=== PATIENT | male | born 1935 | race Caucasian/White ===

== ENCOUNTER 2017-07-19 02:11 | Inpatient (IN) | payer OTHER, MEDICARE ==
[~2017-07-19] VITALS: Ht 167.6 cm; Wt 57.5 kg
[~2017-07-19 02:11] MED LIST: ATORVASTATIN CA40 M1 PO; AZITHROMYCIN250 M1 PO; COUMADIN2 M1 PO; COUMADIN4 M1 PO; LISINOPRIL10 M1 PO; LOSARTAN POTASS50 M1 PO; NADOLOL40 M1 PO; PREDNISONE10 M2 PO; SPIRIVA18 MCG INH; SYMBICORT 80-10.2 GM INH; VENTOLIN HFA18 GM INH; VITAMIN B-121000 MC3 PO
--- NOTE | 2017-07-19 02:14 | ED DYSPNEA/ASTHMA COMPLAINT ---
History of Present Illness General Chief Complaint: Dyspnea (COPD, CHF, Other) Stated Complaint: SOB Source: patient, family, old records, EMS Exam Limitations: no limitations Vital Signs & Intake/Output Vital Signs & Intake/Output Vital Signs Date Time Temp Pulse Resp B/P B/P Pulse O2 O2 Flow FiO2 Mean Ox Delivery Rate 07/19 310 100 07/19 226 Non 100% ReBreather 07/19 222 95.9 97 28 137/96 Allergies Coded Allergies: NO KNOWN ALLERGIES (12/23/15) Reconcile Medications Albuterol Sulfate (Ventolin Hfa) 18 GM HFA.AER.AD 2 PUF INH Q4-6 PRN PRN copd substitution allowed top proair or pro-ventil Atorvastatin Calcium 40 MG TABLET 1 TAB PO DAILY HLD (Reported) Azithromycin 250 MG TABLET 250 MG PO DAILY copd exacerbation Budesonide/Formoterol Fumarate (Symbicort 80-4.5 Mcg Inhaler) 10.2 GM HFA.AER.AD 2 PUF INH BID COPD (Reported) Cyanocobalamin (Vitamin B-12) 1,000 MCG TABLET 1 TAB PO DAILY SUPPLEMENT ( Reported) Losartan Potassium 50 MG TABLET 50 MG PO DAILY HTN Nadolol 40 MG TABLET 1 TAB PO DAILY HTN (Reported) Prednisone 10 MG TABLET 60 MG PO DAILY COPD Exacerbation On Take 12/24-12/25 60 MG 12/26-12/28 50 MG 12/29-12/31 40 MG 01/01-01/03 30 MG 01/04-01/06 20 MG 01/07- 10 MG 01/10-01/12 5 MG Then Stop Tiotropium [place] (Spiriva) 18 MCG CAP.W.DEV 1 CAP INH DAILY COPD (Reported) Warfarin Sodium (Coumadin) 2 MG TABLET 1 TAB PO DAILY ATRIAL FIBRILLATION PLEASE TAKE ONE 2MG TABLET ON 12/26/15 IF INR IS LESS THAN 3. Triage Nurses Notes Reviewed? yes HPI: Patient brought in by ambulance for increasing shortness of breath. Patient has lung cancer and is currently being treated with chemotherapy. His last round of chemotherapy was on Sunday and Sunday of this week and then had to go back in yesterday for a shot of "something." Patient denies any chest pain or chest tightness. There is no coughing. The shortness of breath history of present all day but steadily getting worse in the point that he just feels he cannot catch his breath. Patient had a room air saturation of 72% upon EMS arrival. Past History Travel History Traveled to [place] past 21 day No Medical History Any Pertinent Medical History? see below for history Neurological: NONE EENT: NONE Cardiovascular: AFIB Respiratory: COPD Gastrointestinal: NONE Hepatic: NONE Renal: NONE Musculoskeletal: NONE Psychiatric: NONE Endocrine: NONE Blood Disorders: NONE Cancer(s): RENAL, LUNG CANCER VP DESIGN/Reproductive: NONE History of MRSA: No History of VRE: No History of CDIFF: No Pneumonia Vaccine: 03/13/13 Surgical History Surgical History: appendectomy Psychosocial History Who do you live with Son Services at Home None What is your primary language Pashto Tobacco Use: Quit >30 days ago ETOH Use: denies use Illicit Drug Use: denies illicit drug use Family History Family History, If Any: MOTHER Relation not specified for: FH: cancer Hx Contributory? No Review of Systems Review of Systems Constitutional: Reports: no symptoms. EENTM: Reports: no symptoms. Respiratory: Reports: see HPI, short of breath. Cardiovascular: Reports: no symptoms. GI: Reports: no symptoms. Genitourinary: Reports: no symptoms. Musculoskeletal: Reports: no symptoms. Skin: Reports: no symptoms. Neurological/Psychological: Reports: no symptoms. Hematologic/Endocrine: Reports: no symptoms. Immunologic/Allergic: Reports: no symptoms. All Other Systems: Reviewed and Negative Physical Exam Physical Exam General Appearance: well developed/nourished, alert, awake, anxious, severe distress Head: atraumatic, normal appearance Eyes: Bilateral: PERRL, EOMI. Ears, Nose, Throat: normal pharynx, normal ENT inspection, hearing grossly normal Neck: normal inspection, supple, full range of motion Respiratory: decreased breath sounds, wheezing, respiratory distress Cardiovascular: regular rate/rhythm, normal peripheral pulses Gastrointestinal: normal bowel sounds, non-tender, no organomegaly Extremities: pedal edema Neurologic/Psych: no motor/sensory deficits, awake, alert, oriented x 3, normal mood/affect Skin: intact, normal color, warm/dry Lymphatic: no anterior cervical sandra Core Measures ACS in differential dx? Yes CVA/TIA Diagnosis No Sepsis Present: Yes Sepsis Focused Exam Completed? Yes ED Sepsis Exam Date of Focused Sepsis Exam: 07/19/17 Time of Focused Sepsis Exam: 413 Sepsis Cardiac Exam: Regular Rate/Rhythm Sepsis Resp Exam: CTA Sepsis Cap Refill Exam: >2 sec Sepsis Peripheral Pulse Exam: Weak Sepsis Peripheral Pulse Location: Radial Sepsis Skin Color Exam: Pale, COOL, DRY Skin Temp/Moisture Exam: Cool/Dry Progress Differential Diagnosis: bronchitis, CHF, COPD, pulmonary embolism, pneumonia, pneumothorax Plan of Care: Orders Procedure Date/time Status CBC WITHOUT DIFFERENTIAL 07/20 0600 Active ARTERIAL BLOOD GAS (GEN) 07/19 0600 Active LACTIC ACID 07/19 0514 Active PROTHROMBIN TIME 07/19 0500 Active PHOSPHORUS 07/19 0500 Active MAGNESIUM 07/19 0500 Active HEPATIC FUNCTION PANEL 07/19 0500 Active BASIC ELECTROLYTES PLUS BUN&CR 07/19 0500 Active TRC EVALUATION (GEN) 07/19 0403 Active OXYGEN SETUP (GEN) 07/19 0403 Active Pathway - chart 07/19 040 Active House Staff 07/19 0403 Active CULTURE,URINE 07/19 040 Active SPECIMEN TO BE OBTAINED 07/19 040 Active Code Status 07/19 0403 Active Admit to inpatient 07/19 0357 Active Patient Data 07/[address] CHEST WO IV CONTRAST 07/[address] ABD & PELVIS W/O IV CONTRAS 07/19 0357 Active XRY-PORTABLE CHEST XRAY 07/19 0346 Active VENTILATOR PARAMETERS 07/19 0305 Complete ARTERIAL BLOOD GAS (GEN) 07/19 0214 Complete Telemetry/Lens Coater 07/19 0214 Active BLOOD CULTURE 07/19 0214 Active URINALYSIS 07/19 0214 Active TROPONIN LEVEL 07/19 0214 Complete PARTIAL THROMBOPLASTIN TIME 07/19 0214 Complete PROTHROMBIN TIME 07/19 0214 Complete LACTIC ACID 07/19 0214 Complete COMPREHENSIVE METABOLIC PANEL 07/19 0214 Complete CBC WITHOUT DIFFERENTIAL 07/19 0214 Active EKG 07/19 0212 Active VTE Mechanical Prophylaxis 07/19 UNK Active Vital Signs 07/19 UNK Active Intake & Output 07/19 UNK Active Koo, Insertion/Removal/Asses 07/19 UNK Active Current Medications Sig/[place] Start time Last Medication Dose Stop Time Status Admin Calcium Gluconate 1 GM ONCE ONE 07/19 0400 AC 07/19 (Calcium Gluconate) 07/19 0459 0413 Sodium Chloride 100 ML (Normal Saline 0.9%) Norepinephrine 4 MG ONCE ONE 07/19 0345 UNir (Levophed Drip) 07/19 0346 Sodium Chloride 250 ML (Normal Saline 0.9%) Vancomycin HCl 1,000 MG ONCE ONE 07/19 0345 AC Dextrose/Water 250 ML 07/19 0444 (D5W) Laboratory Tests 07/19/17 0230: pH 7.10 *L, pCO2 89 *H, pO2 95, HCO3 27, ABG O2 Sat (Measured) 93.0 L, P-50 ( Temp Corrected) Y, Carboxyhemoglobin 2.4, O2 Concentration % 10 LPM, Temperature 95.9 L, O2 Delivery Method NEB VIA A/M, Phlebotomy Draw Site LEFT RADIAL 07/19/17 0220: Anion Gap 10, Estimated GFR 49 L, BUN/Creatinine Ratio 35.0 H, Glucose 132 H, Lactic Acid 1.8, Calcium 9.3, Total Bilirubin 0.8, AST 36, ALT 24, Alkaline Phosphatase 161 H, Troponin I 0.03, Total Protein 6.1 L, Albumin 3.6, Globulin 2.5, Albumin/Globulin Ratio 1.4, PT 61.6 *H, INR 5.97 *H, APTT 45 H, CBC w Diff MAN DIFF ORDERED, RBC 3.62 L, MCV 93.7, MCH 32.0 H, MCHC 34.1, RDW 15.4 H, MPV 7.5, Segmented Neutrophils Pending, Band Neutrophils Pending, Lymphocytes Pending, Monocytes Pending, Nucleated RBCs Pending, Platelet Estimate Pending, Basophilic Stippling Pending, Anisocytosis Pending, Stomatocytes Pending, Elliptocytes Pending Microbiology 07/19 040 URINE ROUT: Urine Culture - RECD 07/19 219 BLOOD: Blood Culture - RECD 07/19 213 BLOOD: Blood Culture - ORD Diagnostic Imaging: Viewed by Me: Radiology Read. Discussed w/RAD: Radiology Read. Initial ED EKG: A FIB, LVH, ST DEPRESSIONS LATERALLY WHICH ARE NEW Prior EKG: changed Rhythm Strip: atrial fibrillation Comments: Discussed with the patient and his son, patient is a full code. Son's request the patient was again asked if he would want a breathing tube put in and again the patient responded that yes he would. Patient is becoming more and more lethargic. Patient's son called his sister. Patient's condition was discussed with the sister as well as the son once again. They advised to go ahead and continue full CODE STATUS. The sister is going to try and arrange transportation to the hospital over the next few days and a family meeting will be had. Departure Departure Disposition: STILL A PATIENT Condition: Critical Clinical Impression Primary Impression: Hypercapnic respiratory failure Secondary Impressions: Hyperkalemia, Hypotension Referrals: Karol Norman MD (PCP/Family) Departure Forms: Customer Survey General Discharge Information Admission Note Spoke With: Julian Mitchell MD Documentation of Exam: Documentation of any treatments & extenuating circumstances including Concerns Regarding Discharge (functional status, medication knowledge or non-compliance, living conditions, etc.) that warrant an admission rather than observation: [ Patient is intubated and has a central line and is currently on pressors. Patient is requiring ICU admission. He will need a pulmonary critical care consultation, oncology consultation. Broad-spectrum antibiotics.] Procedures Central Line Central Line Lumen: triple Central Line Procedure: Yes: bentadine prep?, sterile drapes applied, sterile dressing applied. Central Line Position: femoral (R) Anesthesia: lidocaine 1% CC's of Anesthesia: 5 Complications: none Central Line Post Position: sutured, good blood return Intubation Time of Intubation: 0300 Intubation Method: orotracheal Tube Size (cm): 7.5 Medications: ETOMIDATE Breath Sounds After Intubation: equal Intubation Complications: no complications Post Intubation Xray? Yes Critical Care Note Critical Care Note Critical Care Time: mins: (120 MIN)
[2017-07-19 02:35] LABS: HEMATOCRIT 33.9 % (42-52); MEAN CORPUSCULAR HGB CONC 34.1 G/DL (33.0-37.0); MEAN CORPUSCULAR VOLUME 93.7 FL (80.0-94.0); MEAN PLATELET VOLUME 7.5 FL (7.4-10.4); PLATELET COUNT 485 /CUMM (130-400); RBC DISTRIBUTION WIDTH 15.4 % (11.5-14.5); RED BLOOD CELL CT 3.62 /CUMM (4.70-6.10)
[2017-07-19 02:57] LABS: PTT 45 SEC (25-37)
[2017-07-19 03:19] LABS: PT 61.6 SEC (9.4-12.5)
--- NOTE | 2017-07-19 03:23 | RADIOLOGY REPORT ---
EXAMINATION: XR PORTABLE CHEST CLINICAL INFORMATION: Shortness of breath COMPARISON: PET CT 06/12/2017 TECHNIQUE: Portable frontal view of the chest was obtained. FINDINGS: Assessment is partially limited due to patient rotation. The left apex is not fully included on this exam. There is suggestion of small bilateral pleural effusions and mild adjacent basilar atelectasis, without additional definite consolidation. No appreciable pneumothorax or overt pulmonary edema. The cardiomediastinal contour is not well evaluated due to the marked rightward patient rotation. Anterior chest wall mass identified on recent PET CT is not as well demonstrated radiographically. IMPRESSION: 1. Limited examination due to patient rotation. Suggestion of small pleural effusions and mild adjacent basilar atelectasis. No additional consolidation identified. 2. Anterior chest wall mass visualized on recent PET CT is not as well demonstrated radiographically.
[2017-07-19 03:51] LABS: WHITE BLOOD CELL COUNT 164.2 /CUMM (4.8-10.8)
--- NOTE | 2017-07-19 03:57 | History & Physical ---
Danni Seo MD 07/19/17 0356: General Information and HPI MD Statement: I have seen and personally examined CINDI PEPPER and documented this H&P. The patient is a 81 year old M who presented with a patient stated chief complaint of [shortness of breath]. Source of Information: family Exam Limitations: physical impairment History of Present Illness: 81-year-old gentleman with past medical history of atrial fibrillation on Coumadin, hypertension, hyperlipidemia, COPD, lung cancer [small cell] status post chemotherapy was brought in by ambulance with complaints of increased shortness of breath with nonproductive cough since 4 hours. EMT was called who found him with saturation of 70% and started him on 3 L of nasal oxygen and later put him on 15 L on nonrebreather mask. Apparently patient was diagnosed with lung cancer this May 2017 and patient is on chemotherapy. Patient got chemotherapy this Sunday, Sunday followed by Neupogen injection given on Sunday.. Patient has been having shortness of breath with nonproductive cough and decreased by mouth intake for the past few days which gotten worse since last 4 hours. Patient woke up this morning with increased shortness of breath with pain on deep inspiration more on the right side. Patient was admitted in 2015 and found to have lung mass. According to the patient family, patient was diagnosed with lung cancer with metastasis to bone and liver In May 2017. Patient had a PET scan done on 06/12/2017 which showed right lower lobe pulmonary mass consistent with primary pulmonary malignancy. Patient has been seen by Dr. Jensen, Dr. Santiago. 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 Pt had nephrectomy done 6-7 years ago for renal carcinoma.Patient was seen in ED on 07/03/2017 for hyperkalemia. Allergies/Medications Allergies: Coded Allergies: NO KNOWN ALLERGIES (12/23/15) Home Med list Albuterol Sulfate (Ventolin Hfa) 18 GM HFA.AER.AD 2 PUF INH Q4-6 PRN PRN copd substitution allowed top proair or pro-ventil Atorvastatin Calcium 40 MG TABLET 1 TAB PO DAILY HLD (Reported) Azithromycin 250 MG TABLET 250 MG PO DAILY copd exacerbation Budesonide/Formoterol Fumarate (Symbicort 80-4.5 Mcg Inhaler) 10.2 GM HFA.AER.AD 2 PUF INH BID COPD (Reported) Cyanocobalamin (Vitamin B-12) 1,000 MCG TABLET 1 TAB PO DAILY SUPPLEMENT ( Reported) Losartan Potassium 50 MG TABLET 0.5 MG PO DAILY HTN Nadolol 40 MG TABLET 1 TAB PO DAILY HTN (Reported) Prednisone 10 MG TABLET 60 MG PO DAILY COPD Exacerbation On Take 12/24-12/25 60 MG 12/26-12/28 50 MG 12/29-12/31 40 MG 01/01-01/03 30 MG 01/04-01/06 20 MG 01/07- 10 MG 01/10-01/12 5 MG Then Stop Tiotropium [place] (Spiriva) 18 MCG CAP.W.DEV 1 CAP INH DAILY COPD (Reported) Warfarin Sodium (Coumadin) 2 MG TABLET 1 TAB PO DAILY ATRIAL FIBRILLATION PLEASE TAKE ONE 2MG TABLET ON 12/26/15 IF INR IS LESS THAN 3. 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 Home Who Do You Live With? child Services at Home: None Primary Language: Yi ETOH Use: denies use Illicit Drug Use: denies illicit drug use Functional Ability ADLs Independent: dressing, eating, toileting, bathing. Ambulation: independent IADLs Independent: shopping, housework, finances, food prep, telephone, transportation , medication admin. Review of Systems Review of Systems Constitutional: Reports: no symptoms. Comments Review of system unobtainable patient is intubated. Family, he didn't complain of any headache, altered mental status, altered sensation, loss of consciousness, fall, palpitation, nausea, vomiting, abdominal pain, lethargy. Patient though had shortness of breath, nonproductive cough, decreased by mouth intake for the past few days. Exam & Diagnostic Data Last 24 Hrs of Vital Signs/I&O Vital Signs Date Time Temp Pulse Resp B/P B/P Pulse O2 O2 Flow FiO2 Mean Ox Delivery Rate 07/19 0538 96.9 80 16 144/81 92 Ventilator 07/19 0515 100 07/19 0402 96.9 88 143/91 07/19 0311 100 07/19 0230 Non 100% ReBreather 07/19 0227 Non 100% ReBreather 07/19 0223 95.9 97 28 137/96 Intake & Output 07/19 0800 07/19 0000 07/18 1600 Intake Total Output Total Balance Patient 130 lb Weight Weight Reported by Patient Measurement Method Physical Exam General Appearance patient intubated HEENT left pupil larger than the right,sluggishly reactive Cardiovascular Normal S1, Normal S2, No Murmurs Lungs Clear to Auscultation Abdomen Soft Extremities bilateral pedal edema Diagnostic Data EKG Results Atrial fibrillation heart rate 80 CXR Results IMPRESSION: 1. Limited examination due to patient rotation. Suggestion of small pleural effusions and mild adjacent basilar atelectasis. No additional consolidation identified. 2. Anterior chest wall mass visualized on recent PET CT is not as well demonstrated radiographically. 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 Admission labs ABG-pH 7.10, PCO2 80.9, PaO2 95, bicarbonate 27, WBC 164.2, hemoglobin 11.6, hematocrit 33.9, platelets-485, PT61.6, INR 5.97, sodium 142, potassium 5.9, BUN 49, creatinine 1.4, glucose 132, lactic acid 1.8, calcium 9.3, alkaline phosphatase 161. Admission vitals Temperature 95.9, pulse rate 97, respiratory rate 28, blood pressure 137/96, on 15L nonrebreather mask Chest x-ray 1. Limited examination due to patient rotation. Suggestion of small pleural effusions and mild adjacent basilar atelectasis. No additional consolidation identified. 2. Anterior chest wall mass visualized on recent PET CT is not as well demonstrated radiographically. PET scan 06/12/2017 1. Intensely FDG avid right lower lobe pulmonary mass most consistent with a primary pulmonary malignancy. 2. Large erosive intensely FDG avid metastasis replacing the sternal manubrium with a large soft tissue component containing some central necrosis that extends both anteriorly as well as posteriorly into the retrosternal anterior mediastinum. 3. Multiple additional FDG avid osseous metastases are present, as described above. 4. A single FDG avid liver metastasis is present. 5. Absent right kidney, likely surgically resected. 6. Diffuse vascular calcifications including coronary. 7. Aneurysmal dilatation of the infrarenal abdominal aorta with maximum AP dimension of 3.[address] abdomen and pelvis/chest CT 07/19/2017 IMPRESSION: 1. New small to moderate right and small left pleural effusions. 2. Redemonstrated right lower lobe lung mass, similar to 06/12/2017. 3. Redemonstrated anterior chest wall mass replacing most of the sternal manubrium, which may be slightly increased in size from 06/12/2017. 4. Trace perihepatic and pelvic free fluid. 5. Colonic diverticulosis. Mild stranding is noted adjacent to the sigmoid colon, for which a subtle diverticulitis is difficult to entirely exclude. 6. Subtle fracture deformities of the lateral right fifth and sixth ribs are new from 06/12/2017 and may represent acute or subacute injury. 7. Osseous metastases in T2, T11, sacrum, and right iliac bone, some of which are better demonstrated on prior PET/CT. ED treatment Patient came with 15 L on nonrebreather mask. Patient was alert oriented 3 and expressed his wishes to be full code. Later suddenly within 10 minutes his work of breathing increased and had hypotension 80/40, nonresponsive and he was decided to be intubated by the ED physician. Patient also had a central line placed in his right femoral vein. Patient was on levo fed which was eventually stopped secondary to his stable blood pressure. Vancomycin, Ceptazidime 1000mg once, normal saline 1000 ML bolus, etomidate and be clear on the him for sedation, Assessment and plan 1. Acute hypercarbic hypoxic respiratory failure 2. Small cell Lung cancer 3. Supratherapeutic INR 4. Leukocytosis 5. Metabolic encephalopathy 6. Hyperkalemia 7. Acute on chronic kidney disease * We will admit in ICU. Patient is intubated. Patient was given etomidate once for sedation. we will start him on Ativan drip and IV hydration. When we saw him he was off sedation, and he was not in any distress. Patient presentation with hypercarbic hypoxic respiratory failure can be secondary due to his COPD complicated with lung cancer with bilateral pleural effusion. Patient was given 1 dose of vancomycin and Ceptazidime. The clinical picture doesn't look like pneumonia. We will continue antibiotics if needed. We will get the CT chest, abdomen and pelvis. * We will get an head CT to rule out any stroke. * we will hold his Coumadin in view of supratherapeutic INR. We will repeat PT/ INR and give FFP if needed. * Given that patient has lung cancer on chemotherapy we will do a uric acid, electrolyte panel, creatinine phosphokinase to rule out any tumor lysis syndrome. Patient has leukocytosis which can be a leukemoid reaction[patient WBC 164 with increase in neutrophils] We will get an oncology consult in a.m. * Hyperkalemia-patient was given calcium gluconate and we will continue IV hydration and repeat labs at 8 AM. Patient has expressed full code. The goals of care need to be rediscussed with the family. Core Measures/Misc (02/18) Acute Coronary Syndrome ACS Diagnosis: No Congestive Heart Failure Congestive Heart Failure Diagnosis No Cerebrovascular Accident CVA/TIA Diagnosis: No VTE (View Protocol) VTE Risk Factors Age>40 No Mechanical VTE Prophylaxis d/t Other No VTE Pharm Prophylaxis d/t Other Sepsis (View protocol) Sepsis Present: No Rishabh,Gretchen 07/19/17 0548: Assessment/Plan As Ranked By This Provider Problem List: 1. Hypercapnic respiratory failure 2. 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 History is limited as patient is intubated. Speaking with the son reveals that the patient had been experiencing worsening shortness of breath for quite a while now. He was diagnosed with lung cancer apparently in May 2017. Underwent 2 rounds of chemotherapy with the second round that started this week. Patient received chemotherapy on Sunday, Sunday as well as Sunday and apparently had a Neupogen shot yesterday. Going through office notes, reveals patient saw Dr. Ramírez on 07/16/17. He documents that he will be holding his Neulasta. Apparently the son got a phone call yesterday evening saying that the patient has some difficulty ambulating stairs Around 8 PM, son helped him get into bed. He woke up shortly tehreafter, saying that he was having trouble breathing and had pain while taking a deep breath in which got better when he breathes out. Patient has been coughing however there is no history of phlegm production. There is no history of diarrhea, dysuria, fever, chills, any upper respiratory tract infection. Patient follows up with Dr. Jensen and Fabrice Santiago MD. He also had a kidney removed about 7-8 years ago for renal cancer. He follows up with urologist Dr. Washburn. Going through records reveals that he was toxic to 72% on room air when EMS arrived. Place on a nonrebreather and went presented to the ED was alert and oriented 3 however his status continued to decline he became more lethargic, with a drop in blood pressure to 674/46. Since he was very lethargic and began to get more obtunded. And Dr. Bryant spoke with the patient he wanted to be intubated and is at this point after speaking with the family patient ended up getting intubated in the ER. ABG revealed severe hypercarbic respiratory acidosis. A femoral line was also placed and patient was started on Levophed for maintenance of his blood pressure. Vitals at the time for admission blood pressure 137/97, respiratory rate of 20, pulse 97, temperature of 95.9. On physical exam he is intubated ,and not respondin to verbal or painful stimuli despite being not on any sedating meds. HEENT revealed left pupil larger than right, but both reactive to light. He has a 5cm x8cm protuding mass on sternum. Cardiovascular exam pertiennt for normal S1, S2, no murmers appreciated. Respiratory exam was benign with chest clear to ausculation bilaterally. Abdominal exam was unremarkable, with abdomen soft, non-distended, with normal bowel sounds. Examination of extremities- cool to touch, with 1-2+ edema in LE bilaterally. Labs pertinent for leukocytosis with a white blood cell count of 164.2, H&H of 11.6/33.9 and an MCV of 93.7 with a platelet count of 4 85,000. Chemistries pertinent for potassium of 5.9, normal sodium of 142, and I'm normal anion gap of 10, BUN 49 with a creatinine of 1.4 and is from glucose of 132. Lactic acid is 1.8. LFTs pertinent for an AST/active 36/24, total bili 0.8 with an alkaline phosphatase of 161. First set of troponin 0.03. INR was supratherapeutic at 5.97. UA not received. ABG insistent with severe respiratory acidosis with a pH of 7.10, PCO2 of 89, PO2 of 95% CXR showed small pleural effusion and mild adjacent basilar atelectasis consolidation identified within the anterior chest wall mass visualized no recent PET/CT Afib, normal axis, with hr: 97;ST-T changes In the ER he received calcium gluconate 1 g IV 1, ceftaz 1000 milligrams IV 1, vancomycin thousand milligrams IV 1, black 10 mg IV 1, 10 units of insulin IV Assessment and plan Admit patient to ICU #Respiratory Acute hypoxic hypercarbic respiratory failure Most likely secondary to COPD exacerbation versus being on pain medications vs PNA vs mucous plugging? Obtain a U tox, check a repeat ABG in 2 hours and adjust ventilator settings accordingly. 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 tumor lysis syndrome - ? Neupogen Placed consult [facility] Dr. Ramírez - ? leukopharesis Meanwhiel will obtain uric acid, CPK, DIC panel. #Hypotension - 2/2 sepsis - ? PNA - Currently on Levo - Titrate to maintain MAP>65MMhG - R/O ACS with trop and ECG @ 11:00 and 5:00pm #Hyperkalemia - 2/2 tumor lysis syundrome; WHITNEY - Patient received Ca gluconate, insulin and dextrose. -Meanwhile continue hydration with IVF and consider K- axylate if still hyperkalemic #WHITNEY - 2/2 dehydration in setting of decreased PO intake. - Hydrate with IVF and F/U BEP. #Supratherapeutic INR - Hold Warfarin and F/U INR - Held off giving Vit K as it is below 6 and he is not actively bleeding - Obtain a head CT to r/o IC bleed #Stage IV SCLC - Patient has poor prognosis depsite being started on chemo - Patient's family is reasonable and a goals of care discussion needs to be done , once rest of the relatives are here. - DVT prophylaxis - Heoarin 5000IU TID SC - Diet - NPo for now - Code - Full Code for now. - Full discussion with family regarding goals of care. Julian Mitchell 07/19/17 0612: Attending MD Review Statement Attending Statement Attending MD Statement: examined this patient, discuss w/resident/PA/BARREL RIBS SOLDERER, agreed w/resident/PA/BARREL RIBS SOLDERER, discussed with family, reviewed EMR data (avail), reviewed images, amended to note Attending Assessment/Plan: CC: cough, SOB PMH: Metastatic lung cancer, COPD on 2 L nasal cannula, HTN, A. fib, idiopathic pneumothorax in 2013, history of renal cell carcinoma S/P right-sided nephrectomy, History is obtain from patient's son. According to him patient was not feeling well since last few days, had worsening breathing and productive cough. Today it was very severe so they had to call EMS. Patient also complained of chest pain while deep inspiration. Son denies any fever or chills, nausea, vomiting, diarrhea, skin lesions. Patient had been very compliant with all his medications. He uses nighttime 2 L nasal cannula oxygen since some time and one and half liter to 2 L nasal cannula oxygen since last 1-2 months. They did not notice any increasing oxygen demand over few days. He is lung cancer was diagnosed towards end of 2016. Patient is currently on chemotherapy for his lung cancer, on second round. On July 02 patient's blood counts were very low so he received some injection to increase the blood counts. Vitals: Temperature 95.9, pulse 97, RR 28, blood pressure 137/92, saturating 92% on vent On exam: Intubated, pupils 1 mm, sluggishly reactive, left pupil slightly larger than right, patient was off sedation when we examined not attempting to fight ventilation. RS: Air entry equal bilaterally CVS: S1-S2 tachycardia, protruding mass like lesion in the anterior part of the chest. Abdomen: Scaphoid no grimace on palpation, bowel sounds present, bilateral lower extremity edema, cold extremities pulses present bilaterally with decreased perfusion. CT abdomen chest and pelvis without IV contrast: 1. New small to moderate right and small left pleural effusions. 2. Redemonstrated right lower lobe lung mass, similar to 06/12/2017. 3. Redemonstrated anterior chest wall mass replacing most of the sternal manubrium, which may be slightly increased in size from 06/12/2017. 4. Trace perihepatic and pelvic free fluid. 5. Colonic diverticulosis. Mild stranding is noted adjacent to the sigmoid colon, for which a subtle diverticulitis is difficult to entirely exclude. 6. Subtle fracture deformities of the lateral right fifth and sixth ribs are new from 06/12/2017 and may represent acute or subacute injury. 7. Osseous metastases in T2, T11, sacrum, and right iliac bone, some of which are better demonstrated on prior PET/CT. PET scan and MRI brain done in month of June reviewed Assessment and plan 81-year-old male with history of metastatic lung cancer currently under chemotherapy, COPD on 2 L nasal cannula, HTN, A. fib, idiopathic pneumothorax in 2013, history of renal cell carcinoma S/P right-sided nephrectomy, was brought in ER for worsening of shortness of breath and cough over last few days but severe E worse today. Patient was also complaining of chest pain while deep inspiration. Because of his chest pain and shortness of breath EMS was called on arrival EMS noted his oxygen saturation to be 80% on 3 L nasal cannula. Patient was brought in ER with a 15 L nonrebreather, difficult to obtain O2 saturations. Patient appeared pale but alert. In the ER over very short duration of time patient became more lethargic and less arousable, stat ABGs were obtained which shows significant hypercapnia with respiratory acidosis. CODE STATUS was discussed 2 times with patient's son by ER physician who mentioned patient to be full code and suggested to intubate if required. Patient was intubated and was started on ventilation, immediately after that patient's blood pressure dropped, right femoral central line was placed and patient was started on Levophed along with aggressive peripheral hydration. Eventually Levophed was tapered off very quickly. He is also found to have hyperleukocytosis cytosis with WBC 164,000, thrombocytosis 485. He has hyperkalemia 5.9 with T-wave changes on ECG, was treated with calcium gluconate and insulin/dextrose combination in ER. Patient also received vancomycin and ceftaz. I had a detailed discussion with patient's family son and another relative who said that they would want to pursue full code for now as they are expecting his other son and daughter to fly in from [place] and [place]. (He had a sad experience in the past when he to decision for his mother about DNR and DNI and family could not say last goodbyes). He expects to have a family meeting tomorrow to readdress the CODE STATUS and goals of care. + Acute on chronic hypercapnic respiratory failure,likely secondary to COPD exacerbation. Patient does not appear to be on any pain medication even with this extent of cancer. We'll obtain U tox, will continue ventilator support, repeat ABG in 2 hours, change rate or oxygenation accordingly, critical care consult, TRC nebs, IV methylprednisolone, continue broad-spectrum antibiotics for now, obtain CT head, add lactic acid to sampling lab + Metabolic encephalopathy secondary to hypercapnia + Hyperleukocytosis probably secondary to G-CSF : need to confirm this with Oncologist, Please get tumor lysis labs the uric acid, CPK, phosphate at to sample in lab, call oncology as soon as possible, continue aggressive intravenous hydration, add DIC labs to coags + Hyperkalemia: Repeat potassium in 3-4 hour, continue aggressive hydration, try Kayexalate through NG tube, continue aggressive hydration + Metastatic lung cancer + Full code, goals of care as discussed above TTS 34 min
[2017-07-19] MEDS ORDERED: LOSARTAN POTASS50 M1 PO (04:45)
--- NOTE | 2017-07-19 04:47 | RADIOLOGY REPORT ---
EXAMINATION: XR PORTABLE CHEST CLINICAL INFORMATION: Post intubation COMPARISON: Multiple priors, most recent from earlier today TECHNIQUE: Portable frontal view of the chest was obtained. FINDINGS: Endotracheal tube tip lies approximately 8 cm above the faith. Lung volumes are symmetric. There is an approximately 3 cm rounded density overlying the right midlung, in keeping with the lower lobe mass identified on prior PET CT 06/12/2017. No acute consolidation is identified bilaterally. No evidence of pneumothorax, significant pleural effusion, or overt pulmonary edema. Cardiac size is within normal limits. Prominent soft tissue overlying the upper mediastinum may represent the chest wall mass visualized on prior PET/CT. 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 IMPRESSION: 1. Endotracheal tube tip approximately 8 cm above the faith. 2. Redemonstrated right lower lobe mass. 3. Prominent soft tissue density overlying the upper mediastinum may represent a chest wall mass better seen on prior PET/CT.
--- NOTE | 2017-07-19 05:38 | CT SCAN REPORT ---
EXAM: NONCONTRAST CT OF THE CHEST; NONCONTRAST CT OF THE ABDOMEN AND PELVIS INDICATION: Septic COMPARISON: PET CT 06/12/2017 TECHNIQUE: No IV contrast was utilized. Multidetector helical imaging was performed through the chest, abdomen, and pelvis. Coronal and sagittal reformatted images were created at the technologist workstation. DLP: 356.11 mGy-cm FINDINGS: Chest: There is extensive upper lobe predominant emphysema. Curvilinear and spiculated nodular densities in the apical left upper lobe appear unchanged from prior. There is a redemonstrated superior right lower lobe mass peripherally measuring up to approximately 2.8 x 2.0 cm, grossly similar to prior accounting for some respiratory motion artifact on the prior exam. Scattered tiny calcified granulomas are present bilaterally. There are small to moderate right and small left pleural effusions which are new from prior. No pneumothorax. There is a redemonstrated anterior chest wall mass superiorly which mostly replaces the sternal manubrium. This measures approximately 10.5 x 6.1 cm in the axial plane and may be slightly increased in size from 06/12/2017. The visualized thyroid gland is unremarkable. There are subcentimeter mediastinal lymph nodes within the range of normal variation. Cardiac size is within normal limits; no pericardial effusion. Coronary artery calcifications are present. There is atherosclerotic calcification along the aorta. The ascending aorta measures approximately 4.0 cm in diameter. No axillary lymphadenopathy is present. Abdomen/Pelvis: The liver is homogeneous in attenuation and not well evaluated in the absence of intravenous contrast. Previously identified hepatic lesion is not clearly demonstrated on this noncontrast exam. No intrahepatic biliary ductal dilatation. There is trace fluid adjacent to the right hepatic lobe. The gallbladder is unremarkable. The unenhanced spleen, pancreas, and adrenal glands are within normal limits. The right kidney is absent. No left hydronephrosis. There is a 2 mm left lower pole renal calculus. There is a subcentimeter hyperdense lesion off the posterior kidney, suggestive of a hyperdense cyst. A simple cyst measuring 1.7 cm is likely present in the perihilar region of the left kidney. The urinary bladder is nearly empty, with a Oko catheter in place and a small amount of air. The prostate and seminal vesicles are unremarkable. There is trace pelvic free fluid. There is colonic diverticulosis. There is mild stranding adjacent to the sigmoid colon, for which a subtle diverticulitis in this region is difficult to entirely exclude. No evidence of bowel obstruction. The appendix is not discretely visualized. No free air is present. There is atherosclerotic calcification along the aorta. There is an infrarenal abdominal aortic aneurysm measuring up to 3.2 cm. A right femoral central venous catheter is present. No retroperitoneal or pelvic lymphadenopathy is seen. There are subtle fracture deformities of the lateral right fifth and sixth ribs which are new from prior and may be subacute in nature. Chronic posterior lower left rib deformities are consistent with healed old fractures. Note is made of previously identified lytic lesions in T2, T11, sacrum, and right iliac bone, some of which are better demonstrated on prior PET/CT. Degenerative changes are noted in the spine. IMPRESSION: 1. New small to moderate right and small left pleural effusions. 2. Redemonstrated right lower lobe lung mass, similar to 06/12/2017. 3. Redemonstrated anterior chest wall mass replacing most of the sternal manubrium, which may be slightly increased in size from 06/12/2017. 4. Trace perihepatic and pelvic free fluid. 5. Colonic diverticulosis. Mild stranding is noted adjacent to the sigmoid colon, for which a subtle diverticulitis is difficult to entirely exclude. 6. Subtle fracture deformities of the lateral right fifth and sixth ribs are new from 06/12/2017 and may represent acute or subacute injury. 7. Osseous metastases in T2, T11, sacrum, and right iliac bone, some of which are better demonstrated on prior PET/CT.
--- NOTE | 2017-07-19 06:14 | Admission Certification ---
Admission Certification Certification Statement - As attending physician, I certify that at the time of - admission, based on clinical presentation, severity of - symptoms, need for further diagnostic testing and - therapeutic interventions, and risk of adverse outcomes - without in-hospital treatment, in my clinical assessment, - this patient requires an acute hospital stay for a minimum - of two nights or longer. I have also considered psychsocial - factors such as support system, advanced age, financial - issues, cognitive issues, and failed out-patient treatments, - past re-admission history, safety of patient, and lack of - compliance as applicable. Specific rationale supporting this admission is: Acute hypercapnic respiratory failure, metastatic lung cancer, metabolic encephalopathy, hyperleukocytosis
[2017-07-19 06:20] VITALS: BP 144/76
--- NOTE | 2017-07-19 06:39 | CT SCAN REPORT ---
EXAMINATION: CT HEAD WITHOUT CONTRAST CLINICAL INFORMATION: Altered mental status COMPARISON: MRI 06/13/2017 TECHNIQUE: Contiguous axial imaging was performed from the skull base to vertex without intravenous administration of contrast. DLP: 609.83 mGy-cm FINDINGS: There is no evidence of acute intracranial hemorrhage or territorial infarction. No abnormal mass effect or midline shift is seen. Torres to white matter differentiation is well preserved. No extra-axial fluid collections are identified. The ventricles are normal in size. There is redemonstrated encephalomalacia in the inferior right frontal lobe. There is mild periventricular white matter hypoattenuation consistent with chronic small vessel ischemic disease. There is a redemonstrated chronic lacunar infarct in the left basal ganglia. Mild volume loss is noted. The osseous structures and soft tissues are normal. There is a mucous retention cyst in the right maxillary sinus. There is mucosal thickening of the bilateral ethmoid air cells. The mastoid air cells are well-aerated. IMPRESSION: No acute intracranial pathology. Chronic changes as described above.
--- NOTE | 2017-07-19 07:21 | Cons- [facility] ---
General Information and HPI Consulting Request Date of Consult: 07/19/17 Requested By: Yola Reason for Consult: Acute hypoxic hypercarbic respiratory failure Source of Information: old records Exam Limitations: unable to give history History of Present Illness: The patient is 81-year-old male with a past medical history of, COPD on 2 L nasal cannula, HTN, A. 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 As per notes most history was obtained from the son. Patient was not feeling well since last few days, had worsening breathing and productive cough. Yesterday it was very severe so they had to call EMS. Patient also complained of chest pain while deep inspiration. Son denies any fever or chills, nausea, vomiting, diarrhea, skin lesions. Patient had been very compliant with all his medications. He uses nighttime 2 L nasal cannula oxygen since some time and one and half liter to 2 L nasal cannula oxygen since last 1-2 months. They did not notice any increasing oxygen demand over few days. On arrival EMS noted his oxygen saturation to be 80% on 3 L nasal cannula. Patient was brought in ER with a 15 L nonrebreather, difficult to obtain O2 saturations In the ER over very short duration of time patient became more lethargic and less arousable, stat ABGs were obtained which shows significant hypercapnia with respiratory acidosis. CODE STATUS was discussed 2 times ''full code and intubate if required''. Patient was intubated and was started on ventilation, immediately after that patient's blood pressure dropped, right femoral central line was placed and patient was started on Levophed along with aggressive peripheral hydration. Eventually Levophed was tapered off very quickly. He had hyperleukocytosis cytosis with WBC 164,000, thrombocytosis 485. The therapeutic INR. Also hyperkalemia 5.9 with T-wave changes on ECG, was treated with calcium gluconate and insulin/dextrose combination in ER. Patient also received vancomycin and ceftaz. He has been admitted to ICU for management of acute on chronic hypercapnic respiratory failure secondary to COPD exacerbation in setting of advanced lung cancer, metabolic encephalopathy secondary to hypercapnia, hyperleukocytosis, hyperkalemia and metastatic lung disease. At present vitals temperature 96.9, heart rate 85, blood pressure 80/doppler currently Intubated with setting of Fio2 50 tidal volume 500, respiratory rate 18, PEEP 5 We are going to give bolus of 250ml/h, levophid if doesnot respond Patient has been evaluated by oncologist Dr. Jensen, who mentiontion overall poor prognosis with poor response to chemotherapy and advocation for conservative measures. Tumor lysis syndrome is likely given lack of response to chemotherapy. Will discuss goals of care with family #Chest x-ray 1. Limited examination due to patient rotation. Suggestion of small pleural effusions and mild adjacent basilar atelectasis. No additional consolidation identified. 2. Anterior chest wall mass visualized on recent PET CT is not as well demonstrated radiographically. #PET scan 06/12/2017 1. Intensely FDG avid right lower lobe pulmonary mass most consistent with a primary pulmonary malignancy. 2. Large erosive intensely FDG avid metastasis replacing the sternal manubrium with a large soft tissue component containing some central necrosis that extends both anteriorly as well as posteriorly into the retrosternal anterior mediastinum. 3. Multiple additional FDG avid osseous metastases are present, as described above. 4. A single FDG avid liver metastasis is present. 5. Absent right kidney, likely surgically resected. 6. Diffuse vascular calcifications including coronary. 7. Aneurysmal dilatation of the infrarenal abdominal aorta with maximum AP dimension of 3.3 cm. #CT abdomen and pelvis/chest CT 07/19/2017 IMPRESSION: 1. New small to moderate right and small left pleural effusions. 2. Redemonstrated right lower lobe lung mass, similar to 06/12/2017. 3. Redemonstrated anterior chest wall mass replacing most of the sternal manubrium, which may be slightly increased in size from 06/12/2017. 4. Trace perihepatic and pelvic free fluid. 5. Colonic diverticulosis. Mild stranding is noted adjacent to the sigmoid colon, for which a subtle diverticulitis is difficult to entirely exclude. 6. Subtle fracture deformities of the lateral right fifth and sixth ribs are new from 06/12/2017 and may represent acute or subacute injury. 7. Osseous metastases in T2, T11, sacrum, and right iliac bone, some of which are better demonstrated on prior PET/CT. Allergies/Medications Allergies: Coded Allergies: NO KNOWN ALLERGIES (12/23/15) Home Med List: Albuterol Sulfate (Ventolin Hfa) 18 GM HFA.AER.AD 2 PUF INH Q4-6 PRN PRN copd substitution allowed top proair or pro-ventil Atorvastatin Calcium 40 MG TABLET 1 TAB PO DAILY HLD (Reported) Azithromycin 250 MG TABLET 250 MG PO DAILY copd exacerbation Budesonide/Formoterol Fumarate (Symbicort 80-4.5 Mcg Inhaler) 10.2 GM HFA.AER.AD 2 PUF INH BID COPD (Reported) Cyanocobalamin (Vitamin B-12) 1,000 MCG TABLET 1 TAB PO DAILY SUPPLEMENT ( Reported) Losartan Potassium 50 MG TABLET 0.5 MG PO DAILY HTN Nadolol 40 MG TABLET 1 TAB PO DAILY HTN (Reported) Prednisone 10 MG TABLET 60 MG PO DAILY COPD Exacerbation On Take 12/24-12/25 60 MG 12/26-12/28 50 MG 12/29-12/31 40 MG 01/01-01/03 30 MG 01/04-01/06 20 MG 01/07- 10 MG 01/10-01/12 5 MG Then Stop Tiotropium [place] (Spiriva) 18 MCG CAP.W.DEV 1 CAP INH DAILY COPD (Reported) Warfarin Sodium (Coumadin) 2 MG TABLET 1 TAB PO DAILY ATRIAL FIBRILLATION PLEASE TAKE ONE 2MG TABLET ON 12/26/15 IF INR IS LESS THAN 3. Review of Systems Review of Systems Constitutional: Reports: see HPI. 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 Home Who Do You Live With? child Services at Home: None Primary Language: Divehi ETOH Use: denies use Illicit Drug Use: denies illicit drug use Functional Ability ADLs Independent: dressing, eating, toileting, bathing. Ambulation: independent IADLs Independent: shopping, housework, finances, food prep, telephone, transportation , medication admin. Exam & Diagnostic Data Last 24 Hrs of Vital Signs/I&O Vital Signs Date Time Temp Pulse Resp B/P B/P Pulse O2 O2 Flow FiO2 Mean Ox Delivery Rate 07/19 1200 50 07/19 1101 Ventilator 50% 07/19 1003 70 70/49 07/19 0852 50 07/19 0638 50 07/19 0620 99 Ventilator 50% 07/19 0620 96.9 85 18 144/76 99 Ventilator 50% 07/19 0538 96.9 80 16 144/81 92 Ventilator 07/19 0515 100 07/19 0402 96.9 88 143/91 07/19 0311 100 07/19 0230 Non 100% ReBreather 07/19 0227 Non 100% ReBreather 07/19 0223 95.9 97 28 137/96 Intake & Output 07/19 1600 07/19 0800 07/19 0000 Intake Total 2020 Output Total 200 Balance 1820 Intake, IV 2020 Intake, Oral 0 Number 1 Bowel Movements Output, Urine 200 Patient 127 lb Weight Weight Bed scale Measurement Method Physical Exam General Appearance: intubated Head: atraumatic Neck: normal inspection Respiratory: chest non-tender Cardiovascular: s1 s2 Gastrointestinal: normal bowel sounds, soft Last 48 Hrs of Labs/Shun: Laboratory Tests 07/19/17 1100: Troponin I Cancelled 07/19/17 0940: Anion Gap 9, Estimated GFR 53 L, Glucose 67, Uric Acid 11.4 H, Calcium 8.6, Phosphorus 4.1, Magnesium 1.8, Total Bilirubin 0.8, AST 27, ALT 24, Creatine Kinase 31 L, Albumin 2.6 L, PT 65.7 *H, INR 6.37 *H, APTT 44 H, Fibrinogen Activity 214, D-Dimer High Sensitivty 263 H, CBC w Diff MAN DIFF ORDERED, RBC 3.12 L, MCV 92.9, MCH 31.0, MCHC 33.3, RDW 14.9 H, MPV 7.4, Segmented Neutrophils 88 H, Band Neutrophils 10 H, Lymphocytes 1 L, Monocytes 1 L, Platelet Estimate VERIFIED BY SMEAR 07/19/17 0915: Uric Acid 11.5 H 07/19/17 0915: Lactic Acid 2.1 07/19/17 0800: Total Bilirubin Cancelled, Direct Bilirubin Cancelled, AST Cancelled, ALT Cancelled, Alkaline Phosphatase Cancelled, Total Protein Cancelled, Albumin Cancelled 07/19/17 0630: Sodium Cancelled, Potassium Cancelled, Chloride Cancelled, Carbon Dioxide Cancelled, Anion Gap Cancelled, BUN Cancelled, Creatinine Cancelled, Glucose Cancelled, Calcium Cancelled, Phosphorus Cancelled, Magnesium Cancelled, Total Bilirubin Cancelled, AST Cancelled, ALT Cancelled, Albumin Cancelled 07/19/17 0608: Fibrinogen Activity Cancelled 07/19/17 0520: pH 7.49 H, pCO2 27 L, pO2 569 H, HCO3 21, ABG O2 Sat (Measured) 99.0, P-50 ( Temp Corrected) Y, Carboxyhemoglobin 0.1 L, O2 Concentration % 100%, Temperature 96.9 L, Respiration Rate 24, O2 Delivery Method ESPRIT, Vent Mode AC, Expiratory Pressure 5, Tidal Volume 500, Phlebotomy Draw Site LEFT RADIAL 07/19/17 0500: PT Cancelled, INR Cancelled 07/19/17 0400: Urine Opiates Screen < 100.00, Methadone Screen < 40, Barbiturate Screen < 60, Ur Phencyclidine Scrn < 6.00, Amphetamines Screen 141, U Benzodiazepines Scrn < 85, Urine Cocaine Screen < 50, Urine Cannabis Screen < 5.00, Urine Color YEL, Urine Clarity HAZY H, Urine pH 6.0, Ur Specific [place] >= 1.030, Urine Protein 100 H, Urine Ketones NEG, Urine Nitrite NEG, Urine Bilirubin NEG, Urine Urobilinogen 0.2, Ur Leukocyte Esterase NEG, Ur Microscopic SEDIMENT EXAMINED, Urine RBC 1-3, Urine WBC 1-3 H, Urine Bacteria MANY H, Urine Hemoglobin SMALL H, Urine Glucose NEG 07/19/17 0230: pH 7.10 *L, pCO2 89 *H, pO2 95, HCO3 27, ABG O2 Sat (Measured) 93.0 L, P-50 ( Temp Corrected) Y, Carboxyhemoglobin 2.4, O2 Concentration % 10 LPM, Temperature 95.9 L, O2 Delivery Method NEB VIA A/M, Phlebotomy Draw Site LEFT RADIAL 07/19/17 0220: Anion Gap 10, Estimated GFR 49 L, BUN/Creatinine Ratio 35.0 H, Glucose 132 H, Lactic Acid 1.8, Calcium 9.3, Phosphorus 6.2 H, Total Bilirubin 0.8, AST 36, ALT 24, Alkaline Phosphatase 161 H, Creatine Kinase 44 L, Troponin I 0.03, Total Protein 6.1 L, Albumin 3.6, Globulin 2.5, Albumin/Globulin Ratio 1.4, PT 61.6 *H, INR 5.97 *H, APTT 45 H, CBC w Diff MAN DIFF ORDERED, RBC 3.62 L, MCV 93.7, MCH 32.0 H, MCHC 34.1, RDW 15.4 H, MPV 7.5, Segmented Neutrophils 90 H, Band Neutrophils 8 H, Lymphocytes 1 L, Monocytes 1 L, Nucleated RBCs 1 H, Platelet Estimate ADEQUATE, Basophilic Stippling RARE, Anisocytosis 1+, Stomatocytes FEW, Elliptocytes FEW Microbiology 07/19 0515 NASOPHARYN: Influenza Virus A & B Rapid Smear - COMP Assessment/Plan Impression/Plan: This is a 81-year-old gentleman with end-stage COPD, 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 The patient is being evaluated and treated for following conditions Respiratory #Acute hypoxic hypercarbic respiratory failure related to progressive lung cancer (Terminal lung cancer with multiple metastasis) and End-stage COPD with COPD exacerbation as well -Continue mechanical ventilator -TRC nebs, Ventolin and Symbicort Spiriva -Continue Solu-Medrol 40 mg every 8 -Continue on Vancomycin and Ceftaz -Flu swab negative Infectious #Leukocytosis Appears to be from Leukomoid Reaction reaction. Tumor lysis less likely asking tumor is unresponsive to chemotherapy. Can also be related to chemotherapy with Neulasta. -Dr. Jensen has been consulted, recommended conservative management -uric acid 11.5, CPK 31, fibrinogen 214 #Septic shock most likely secondary to diverticulitis with recent chemotherapy Other possibilities include superimposed pneumonia but less likely -Continue ceftaz, vancomycin and Flagyl -Consider ID consult Cardiovascular #Hypotension likely secondary to sepsis PNA vs diverticulitis - Currently on Levo - Titrate to maintain MAP>65MMhG - R/O ACS with trop and ECG @ 11:00 and 5:00pm Hematology #Stage IV SCLC -Extremely poor prognosis. Goals of care discussion #Supratherapeutic INR in setting of WHITNEY -Hold Warfarin and follow-up INR -Subcutaneous vitamin K 1 mg once -Head CT showed no acute intracranial pathology Metabolic #WHITNEY is likely secondary to dehydration in setting of decreased PO intake. -Monitor creatinine closely and IVF -Repeat creatinine 1.3 improving #Hyperkalemia in setting of WHITNEY -Tumor lysis syndrome less likely - Patient received Ca gluconate, insulin and dextrose. - IVF and consider K- axylate if still hyperkalemic replete potassium is 4.4 Alimentary #D 5/2 normal saline, nothing by mouth Nephro #WHITNEY Continue IVF #DVT prophylaxis Heparin 5000IU TID SC #CODE STATUS family meeting planned this afternoon Consult Acknowledgment - Thank you for your consult request.
--- NOTE | 2017-07-19 07:34 | Cons- Oncology ---
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 The patient is currently intubated. The patient has been treated with chemotherapy consisting of carboplatin and ENGINE REPAIR SUPERVISOR-16 as well as Neulasta. The patient's initial course of chemotherapy was complicated by leukopenia/neutropenia. Patient completed his second cycle of chemotherapy this week presented to the emergency room with progressive shortness of breath. As per the notes, he had no fever chest pain or productive sputum. Patient's initial cycle of chemotherapy was complicated by mild hyperkalemia but no change in his tumor burden. Allergies/Medications Allergies: Coded Allergies: NO KNOWN ALLERGIES (12/23/15) Home Med List: Albuterol Sulfate (Ventolin Hfa) 18 GM HFA.AER.AD 2 PUF INH Q4-6 PRN PRN copd substitution allowed top proair or pro-ventil Atorvastatin Calcium 40 MG TABLET 1 TAB PO DAILY HLD (Reported) Azithromycin 250 MG TABLET 250 MG PO DAILY copd exacerbation Budesonide/Formoterol Fumarate (Symbicort 80-4.5 Mcg Inhaler) 10.2 GM HFA.AER.AD 2 PUF INH BID COPD (Reported) Cyanocobalamin (Vitamin B-12) 1,000 MCG TABLET 1 TAB PO DAILY SUPPLEMENT ( Reported) Losartan Potassium 50 MG TABLET 0.5 MG PO DAILY HTN Nadolol 40 MG TABLET 1 TAB PO DAILY HTN (Reported) Prednisone 10 MG TABLET 60 MG PO DAILY COPD Exacerbation On Take 12/24-12/25 60 MG 12/26-12/28 50 MG 12/29-12/31 40 MG 01/01-01/03 30 MG 01/04-01/06 20 MG 01/07- 10 MG 01/10-01/12 5 MG Then Stop Tiotropium [place] (Spiriva) 18 MCG CAP.W.DEV 1 CAP INH DAILY COPD (Reported) Warfarin Sodium (Coumadin) 2 MG TABLET 1 TAB PO DAILY ATRIAL FIBRILLATION PLEASE TAKE ONE 2MG TABLET ON 12/26/15 IF INR IS LESS THAN 3. Current Medications: Current Medications Sig/[place] Start time Last Medication Dose Route Stop Time Status Admin Albuterol Sulfate 3 ML ONCE ONE 07/19 0500 DC 07/19 INH 07/19 0501 0225 Albuterol Sulfate 2 PUF Q4-6 PRN PRN 07/19 0500 AC INH Atorvastatin Calcium 40 MG 1700 07/19 1700 AC PO Budesonide/ 2 PUF BID 07/19 1000 AC Formoterol Fumarate INH Calcium Gluconate 0 .STK-MED ONE 07/19 0405 DC IV Calcium Gluconate 1 GM ONCE ONE 07/19 0400 DC 07/19 Sodium Chloride 100 ML IV 07/19 0459 0413 Ceftazidime 1,000 MG Q12 07/19 1000 AC IV Ceftazidime 1,000 MG ONCE ONE 07/19 0345 DC 07/19 IV 07/19 0346 0325 Ceftazidime 0 .STK-MED ONE 07/19 0326 DC .ROUTE Dextrose 25 GM ONCE ONE 07/19 0345 DC 07/19 IV 07/19 0346 0413 Etomidate 20 MG ONCE ONE 07/19 0400 DC 07/19 IV 07/19 0401 0258 Etomidate 0 .STK-MED ONE 07/19 0259 DC IV Insulin Human Regular 10 UNITS ONCE ONE 07/19 0345 DC 07/19 IV 07/19 0346 0413 Ipratropium [place] 2.5 ML ONCE ONE 07/19 0500 DC 07/19 INH 07/19 0501 0225 Lorazepam 50 MG ONCE ONE 07/19 0400 DC 07/19 Dextrose/Water 500 ML IV 07/19 0401 0516 Methylprednisolone 40 MG Q8 07/19 0630 AC IV Nadolol 40 MG DAILY 07/19 1000 CAN PO Norepinephrine 4 MG ONCE ONE 07/19 0345 DC 07/19 Sodium Chloride 250 ML IV 07/19 0346 0314 Pantoprazole Sodium 40 MG DAILY 07/19 1000 AC IV Sodium Chloride 1,000 ML BOLUS ONE 07/19 0515 DC 07/19 IV 07/19 0614 0557 Sodium Chloride 1,000 ML Q10H 07/19 0500 AC IV 07/20 1059 Tiotropium [place] 1 PUF DAILY 07/19 1000 AC INH Vancomycin HCl 1,000 MG ONCE ONE 07/19 0345 DC 07/19 Dextrose/Water 250 ML IV 07/19 0444 0327 Vancomycin HCl 0 .STK-MED ONE 07/19 0326 DC .ROUTE Vecuronium [place] 10 MG ONCE ONE 07/19 0400 DC 07/19 IV 07/19 0401 0319 Vecuronium [place] 0 .STK-MED ONE 07/19 0300 DC IV Review of Systems Review of Systems: Unobtainable Past History Travel History Traveled to [place] past 21 day No Medical History Neurological: NONE EENT: NONE Cardiovascular: AFIB, hypertension Respiratory: COPD Gastrointestinal: NONE Hepatic: NONE Renal: nephrectomy Musculoskeletal: NONE Psychiatric: NONE Endocrine: NONE Blood Disorders: NONE Cancer(s): RENAL, LUNG CANCER 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 Home Who Do You Live With? child Services at Home: None Primary Language: Sierra Leonean ETOH Use: denies use Illicit Drug Use: denies illicit drug use Functional Ability ADLs Independent: dressing, eating, toileting, bathing. Ambulation: independent IADLs Independent: shopping, housework, finances, food prep, telephone, transportation , medication admin. Exam & Diagnostic Data Vital Signs and I&O Vital Signs Date Time Temp Pulse Resp B/P B/P Pulse O2 O2 Flow FiO2 Mean Ox Delivery Rate 07/19 0638 50 07/19 0538 96.9 80 16 144/81 92 Ventilator 07/19 0515 100 07/19 0402 96.9 88 143/91 07/19 0311 100 07/19 0230 Non 100% ReBreather 07/19 022 Non 100% ReBreather 07/19 022 95.9 97 28 137/96 Intake & Output 07/19 0800 07/19 0000 07/18 1600 Intake Total Output Total Balance Patient 130 lb Weight Weight Reported by Patient Measurement Method Gen.: in NAD, intubated ENT: Sclera anicteric Chest: Decreased breath sounds Cor: RRR, no extra sounds Abdomen: Soft, bowel sounds present, no tenderness, no rebound Extremities: Without clubbing, cyanosis, or asymmetric edema Neurology: Awake, no gross focal deficit Skin: No rashes Last 48 Hours of Lab Results: Laboratory Tests 07/19 07/19 07/19 07/19 0630 0608 0520 0500 Blood Gas pH (7.35 - 7.45 PH) 7.49 H pCO2 (35 - 45 TORR) 27 L pO2 (80 - 100 TORR) 569 H HCO3 (21 - 28 MEQ/L) 21 ABG O2 Sat (Measured) (>96.0 %) 99.0 P-50 (Temp Corrected) Y Carboxyhemoglobin (1.5 - 5.0 %) 0.1 L O2 Concentration % 100% Temperature (97.0 - 100.0 FARH) 96.9 L Respiration Rate (BPM) 24 O2 Delivery Method ESPRIT Vent Mode AC Expiratory Pressure (CMH2O/P) 5 Tidal Volume (CC) 500 Chemistry Sodium Cancelled Potassium Cancelled Chloride Cancelled Carbon Dioxide Cancelled Anion Gap Cancelled BUN Cancelled Creatinine Cancelled Glucose Cancelled Calcium Cancelled Phosphorus Cancelled Magnesium Cancelled Total Bilirubin Cancelled AST Cancelled ALT Cancelled Albumin Cancelled Coagulation PT Cancelled INR Cancelled Fibrinogen Activity Cancelled Miscellaneous Phlebotomy Draw Site LEFT RADIAL 07/19 07/19 0400 0230 Blood Gas pH (7.35 - 7.45 PH) 7.10 *L pCO2 (35 - 45 TORR) 89 *H pO2 (80 - 100 TORR) 95 HCO3 (21 - 28 MEQ/L) 27 ABG O2 Sat (Measured) (>96.0 %) 93.0 L P-50 (Temp Corrected) Y Carboxyhemoglobin (1.5 - 5.0 %) 2.4 O2 Concentration % 10 LPM Temperature (97.0 - 100.0 FARH) 95.9 L O2 Delivery Method NEB VIA A/M Miscellaneous Phlebotomy Draw Site LEFT RADIAL Urines Urine Color (YEL,AMB,STR) YEL Urine Clarity (CLEAR) HAZY H Urine pH (5.0 - 8.0) 6.0 Ur Specific [place] (1.001 - 1.035) >= 1.030 Urine Protein (NEG,<30 MG/DL) 100 H Urine Ketones (NEG) NEG Urine Nitrite (NEG) NEG Urine Bilirubin (NEG) NEG Urine Urobilinogen (0.1 - 1.0 EU/dl) 0.2 Ur Leukocyte Esterase (NEG) NEG Ur Microscopic SEDIMENT EXAMINED Urine RBC (0 - 5 /HPF) 1-3 Urine WBC (0 - 2 /HPF) 1-3 H Urine Bacteria (NEG/NONE) MANY H Urine Hemoglobin (NEG) SMALL H Urine Glucose (N MG/DL) NEG 07/19 0220 Chemistry Sodium (137 - 145 mmol/L) 142 Potassium (3.5 - 5.1 mmol/L) 5.9 H Chloride (98 - 107 mmol/L) 104 Carbon Dioxide (22 - 30 mmol/L) 29 Anion Gap (5 - 16) 10 BUN (9 - 20 mg/dL) 49 H Creatinine (0.7 - 1.2 mg/dL) 1.4 H Estimated GFR (>60 ml/min) 49 L BUN/Creatinine Ratio (7 - 25 %) 35.0 H Glucose (65 - 99 mg/dL) 132 H Lactic Acid (0.7 - 2.1 mmol/L) 1.8 Calcium (8.4 - 10.2 mg/dL) 9.3 Phosphorus (2.5 - 4.5 mg/dL) 6.2 H Total Bilirubin (0.2 - 1.3 mg/dL) 0.8 AST (17 - 59 U/L) 36 ALT (21 - 72 U/L) 24 Alkaline Phosphatase (< 127 U/L) 161 H Creatine Kinase (55 - 170 U/L) 44 L Troponin I (<0.11 ng/ml) 0.03 Total Protein (6.3 - 8.2 g/dL) 6.1 L Albumin (3.5 - 5.0 g/dL) 3.6 Globulin (1.9 - 4.2 gm/dL) 2.5 Albumin/Globulin Ratio (1.1 - 2.2 %) 1.4 Coagulation PT (9.4 - 12.5 SEC) 61.6 *H INR (0.90 - 1.17) 5.97 *H APTT (25 - 37 SEC) 45 H Hematology CBC w Diff MAN DIFF ORDERED WBC (4.8 - 10.8 /CUMM) 164.2 *H RBC (4.70 - 6.10 /CUMM) 3.62 L Hgb (14.0 - 18.0 G/DL) 11.6 L Hct (42 - 52 %) 33.9 L MCV (80.0 - 94.0 FL) 93.7 MCH (27.0 - 31.0 PG) 32.0 H MCHC (33.0 - 37.0 G/DL) 34.1 RDW (11.5 - 14.5 %) 15.4 H Plt Count (130 - 400 /CUMM) 485 H MPV (7.4 - 10.4 FL) 7.5 Segmented Neutrophils (42.2 - 75.2 %) 90 H Band Neutrophils (0.0 - 5.0 %) 8 H Lymphocytes (20.5 - 51.1 %) 1 L Monocytes (1.7 - 9.3 %) 1 L Nucleated RBCs (0.0 - 0.0 /100WBC) 1 H Platelet Estimate (ADEQUATE) ADEQUATE Basophilic Stippling RARE Anisocytosis 1+ Stomatocytes FEW Elliptocytes FEW Imaging/Other Studies: [id number], obvious lung cancer, new small bilateral pleural effusions, increased sternal mass, emphysema Assessment/Plan Assessment: 1. Hypercapnic respiratory failure and gentleman with advanced lung cancer in general poor performance status. Despite his poor prognosis and overall status the patient wished for full measures. Patient is not obviously infected. Patient demonstrates dramatic leukocytosis.patient has no immaturity and therefore hyperviscosity is less likely. Patient is was not assess for pulmonary embolism; he is supratherapeutic with regard to Coumadin Recommend- For now continue current measures Would not recommend pheresis 2. Advanced lung cancer-very poor prognosis. Patient and family have been made aware of this in the past. 3. Metabolic-doubt significant tumor lysis syndrome given lack of response to chemotherapy thus far. Recommend- Follow-up appropriate lab Hydration 4. Supratherapeutic PT/INR-no gross bleeding Recommend- If bleeding, FFP If repeat PT/INR today veins high, FFP Overall status-very poor prognosis thus far no response to chemotherapy. I would advocate patient and family conservative measures Recommendations: .. Consult Acknowledgment - Thank you for your consult request.
[2017-07-19 08:00] VITALS: BP 80/50
--- NOTE | 2017-07-19 09:46 | RADIOLOGY REPORT ---
EXAMINATION: XR PORTABLE ABDOMEN CLINICAL INFORMATION: New OG tube placed. COMPARISON: Chest x-ray 07/19/2016 TECHNIQUE: AP view of the abdomen. FINDINGS: Lung bases are not well evaluated, overpenetrated. There is a 3 cm right mid lung mass, better seen on prior imaging. The tip of the orogastric tube is in the body of the stomach. There is a catheter overlying the right pelvis, presumably a right femoral venous catheter. There is S-shaped thoracolumbar scoliosis of the spine with multilevel degenerative changes most notable in the lumbar spine. There are generative changes of the bilateral sacroiliac joints. Nonobstructive abdominal bowel gas pattern. The lungs are hyperexpanded and hyperinflated consistent with emphysema. IMPRESSION: Tip of the orogastric tube is in the body of the stomach. Partially seen 3 cm right mid lung mass, highly suspicious for neoplasm.
--- NOTE | 2017-07-19 09:53 | Cons- CRCU ---
See Addendum General Information and HPI Consulting Request Date of Consult: 07/19/17 Requested By: med team History of Present Illness: 81-year-old gentleman with past medical history of atrial fibrillation on Coumadin, hypertension, hyperlipidemia, COPD, lung cancer [small cell] status post chemotherapy was brought in by ambulance with complaints of increased shortness of breath with nonproductive cough since 4 hours. EMT was called who found him with saturation of 70% and started him on 3 L of nasal oxygen and later put him on 15 L on nonrebreather mask. Patient was recently diagnosed with aggressively growing small cell lung cancer with recent chemotherapy. Unfortunately his overall performance status has been poor. The patient has been treated with chemotherapy consisting of carboplatin and MASH TUB COOKER- 16 as well as Neulasta. The patient's initial course of chemotherapy was complicated by leukopenia/neutropenia. Patient completed his second cycle of chemotherapy this week Since he is here is now intubated sedated and seems to be significantly hypotensive with multiple organ dysfunction with respiratory failure and shock. Allergies/Medications Allergies: Coded Allergies: NO KNOWN ALLERGIES (12/23/15) Home Med List: Albuterol Sulfate (Ventolin Hfa) 18 GM HFA.AER.AD 2 PUF INH Q4-6 PRN PRN copd substitution allowed top proair or pro-ventil Atorvastatin Calcium 40 MG TABLET 1 TAB PO DAILY HLD (Reported) Azithromycin 250 MG TABLET 250 MG PO DAILY copd exacerbation Budesonide/Formoterol Fumarate (Symbicort 80-4.5 Mcg Inhaler) 10.2 GM HFA.AER.AD 2 PUF INH BID COPD (Reported) Cyanocobalamin (Vitamin B-12) 1,000 MCG TABLET 1 TAB PO DAILY SUPPLEMENT ( Reported) Losartan Potassium 50 MG TABLET 0.5 MG PO DAILY HTN Nadolol 40 MG TABLET 1 TAB PO DAILY HTN (Reported) Prednisone 10 MG TABLET 60 MG PO DAILY COPD Exacerbation On Take 12/24-12/25 60 MG 12/26-12/28 50 MG 12/29-12/31 40 MG 01/01-01/03 30 MG 01/04-01/06 20 MG 01/07- 10 MG 01/10-01/12 5 MG Then Stop Tiotropium [place] (Spiriva) 18 MCG CAP.W.DEV 1 CAP INH DAILY COPD (Reported) Warfarin Sodium (Coumadin) 2 MG TABLET 1 TAB PO DAILY ATRIAL FIBRILLATION PLEASE TAKE ONE 2MG TABLET ON 12/26/15 IF INR IS LESS THAN 3. 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 Home Who Do You Live With? child Services at Home: None Primary Language: Guatemalan Smoking Status: Former Smoker ETOH Use: denies use Illicit Drug Use: denies illicit drug use Functional Ability ADLs Independent: dressing, eating, toileting, bathing. Ambulation: independent IADLs Independent: shopping, housework, finances, food prep, telephone, transportation , medication admin. Exam & Diagnostic Data Last 24 Hrs of Vital Signs/I&O Vital Signs Date Time Temp Pulse Resp B/P B/P Pulse O2 O2 Flow FiO2 Mean Ox Delivery Rate 07/19 0852 50 07/19 0638 50 07/19 0620 99 Ventilator 50% 07/19 0620 96.9 85 18 144/76 99 Ventilator 50% 07/19 0538 96.9 80 16 144/81 92 Ventilator 07/19 0515 100 07/19 0402 96.9 88 143/91 07/19 0311 100 07/19 0230 Non 100% ReBreather 07/19 0227 Non 100% ReBreather 07/19 0223 95.9 97 28 137/96 Intake & Output 07/19 1600 07/19 0800 07/19 0000 Intake Total 2020 Output Total 200 Balance 1820 Intake, IV 2020 Intake, Oral 0 Number 1 Bowel Movements Output, Urine 200 Patient 127 lb Weight Weight Bed scale Measurement Method Last 48 Hrs of Labs/Shun: Laboratory Tests 07/19/17 0940: Sodium Pending, Potassium Pending, Chloride Pending, Carbon Dioxide Pending, Anion Gap Pending, BUN Pending, Creatinine Pending, Glucose Pending, Uric Acid Pending, Calcium Pending, Phosphorus Pending, Magnesium Pending, Total Bilirubin Pending, AST Pending, ALT Pending, Creatine Kinase Pending, Albumin Pending, PT Pending, INR Pending, APTT Pending, Fibrinogen Activity Pending, D-Dimer High Sensitivty Pending, CBC w Diff Pending, WBC Pending, RBC Pending, Hgb Pending, Hct Pending, MCV Pending, MCH Pending, MCHC Pending, RDW Pending, Plt Count Pending, MPV Pending 07/19/17 0915: Uric Acid Pending 07/19/17 0915: Lactic Acid Pending 07/19/17 0800: Total Bilirubin Cancelled, Direct Bilirubin Cancelled, AST Cancelled, ALT Cancelled, Alkaline Phosphatase Cancelled, Total Protein Cancelled, Albumin Cancelled 07/19/17 0630: Sodium Cancelled, Potassium Cancelled, Chloride Cancelled, Carbon Dioxide Cancelled, Anion Gap Cancelled, BUN Cancelled, Creatinine Cancelled, Glucose Cancelled, Calcium Cancelled, Phosphorus Cancelled, Magnesium Cancelled, Total Bilirubin Cancelled, AST Cancelled, ALT Cancelled, Albumin Cancelled 07/19/17 0608: Fibrinogen Activity Cancelled 07/19/17 0520: pH 7.49 H, pCO2 27 L, pO2 569 H, HCO3 21, ABG O2 Sat (Measured) 99.0, P-50 ( Temp Corrected) Y, Carboxyhemoglobin 0.1 L, O2 Concentration % 100%, Temperature 96.9 L, Respiration Rate 24, O2 Delivery Method ESPRIT, Vent Mode AC, Expiratory Pressure 5, Tidal Volume 500, Phlebotomy Draw Site LEFT RADIAL 07/19/17 0500: PT Cancelled, INR Cancelled 07/19/17 0400: Urine Opiates Screen < 100.00, Methadone Screen < 40, Barbiturate Screen < 60, Ur Phencyclidine Scrn < 6.00, Amphetamines Screen 141, U Benzodiazepines Scrn < 85, Urine Cocaine Screen < 50, Urine Cannabis Screen < 5.00, Urine Color YEL, Urine Clarity HAZY H, Urine pH 6.0, Ur Specific [place] >= 1.030, Urine Protein 100 H, Urine Ketones NEG, Urine Nitrite NEG, Urine Bilirubin NEG, Urine Urobilinogen 0.2, Ur Leukocyte Esterase NEG, Ur Microscopic SEDIMENT EXAMINED, Urine RBC 1-3, Urine WBC 1-3 H, Urine Bacteria MANY H, Urine Hemoglobin SMALL H, Urine Glucose NEG 07/19/17 0230: pH 7.10 *L, pCO2 89 *H, pO2 95, HCO3 27, ABG O2 Sat (Measured) 93.0 L, P-50 ( Temp Corrected) Y, Carboxyhemoglobin 2.4, O2 Concentration % 10 LPM, Temperature 95.9 L, O2 Delivery Method NEB VIA A/M, Phlebotomy Draw Site LEFT RADIAL 07/19/17 0220: Anion Gap 10, Estimated GFR 49 L, BUN/Creatinine Ratio 35.0 H, Glucose 132 H, Lactic Acid 1.8, Calcium 9.3, Phosphorus 6.2 H, Total Bilirubin 0.8, AST 36, ALT 24, Alkaline Phosphatase 161 H, Creatine Kinase 44 L, Troponin I 0.03, Total Protein 6.1 L, Albumin 3.6, Globulin 2.5, Albumin/Globulin Ratio 1.4, PT 61.6 *H, INR 5.97 *H, APTT 45 H, CBC w Diff MAN DIFF ORDERED, RBC 3.62 L, MCV 93.7, MCH 32.0 H, MCHC 34.1, RDW 15.4 H, MPV 7.5, Segmented Neutrophils 90 H, Band Neutrophils 8 H, Lymphocytes 1 L, Monocytes 1 L, Nucleated RBCs 1 H, Platelet Estimate ADEQUATE, Basophilic Stippling RARE, Anisocytosis 1+, Stomatocytes FEW, Elliptocytes FEW Microbiology 07/19 514 NASOPHARYN: Influenza Virus A & B Rapid Smear - COMP Assessment/Plan Impression/Plan: [id number], obvious lung cancer, new small bilateral pleural effusions, increased sternal mass, emphysema SIGNIFICANT DATA CT scan reviewed CT of the head showed no acute pathology Chest showed small moderate right and left effusion large right lower lobe mass anterior chest wall mass which may be increased in size Probable diverticulitis Subtle fractures in the lateral ribs Multiple bony metastasis CT and subsequent MRI of the head which was done showed encephalomalacia with previous stroke Previous PET scan showed advanced malignancy Exam General Appearance patient intubated, sedation HEENT left pupil larger than the right,sluggishly reactive Cardiovascular Normal S1, Normal S2, No Murmurs Lungs Clear to Auscultation Abdomen Soft Extremities bilateral pedal edema IMPRESSION This is a 81-year-old gentleman with end-stage COPD, 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 despite chemotherapy with very poor performance status, paroxysmal atrial fibrillation he is on anticoagulation, hypertension, hyperlipidemia, previous renal cell carcinoma with previous surgery, chronic hoarseness of voice, recent 2 courses of chemotherapy for small cell lung cancer with no clinical response so far with advancing an enlarging malignancy now here with * Acute hypercarbic and hypoxemic respiratory failure related to progressive lung cancer * Shock and sepsis most likely diverticulitis with recent chemotherapy * Significantly elevated WBC most likely related to his Neulasta * Supratherapeutic INR from [facility] acute kidney disease with hyperkalemia rule out tumor lysis but this seems less likely * Ischemic heart disease with paroxysmal A. fib * Terminal lung cancer with multiple metastasis * Poor performance status and cachexia * End-stage COPD with COPD exacerbation as well RECOMMENDATION * Patient's overall prognosis is grim and poor. Recently had had a long conversation with the patient and he was very clear that he did not want to be on any life support for a prolonged period time and he wanted an attempt to be intubated one time. And he was quite sure that he did not want to suffer his overall prognosis was poor. After reviewing his chart and reviewing his oncology notes it's quite clear his prognosis is poor.. We'll discuss with the family regarding this. * In the meantime continues mechanical ventilator * Intravenous steroids * Check uric acid * IV fluids D5 normal saline at 250 mL for now for the next 2 L and subsequently treat him with 100 mL * Start norepinephrine low dose * Start low dose fentanyl prn 25 mcg * Till we have the family meeting * Continue intravenous proton pump inhibitor * Keep him nothing by mouth * Add Flagyl as he may have diverticulitis as well * Check his labs this evening * Follow his potassium in the next few hours and if it's elevated we will treat him with Kayexalate enema Prognosis is grim and we'll discuss with family about his previous wishes and patient may be a candidate for terminal extubation if he does not improve in the next day Patient is critically ill total time spent 45 minutes Consult Acknowledgment - Thank you for your consult request.
[2017-07-19 09:54] LABS: MEAN CORPUSCULAR HGB CONC 33.3 G/DL (33.0-37.0); MEAN CORPUSCULAR VOLUME 92.9 FL (80.0-94.0); MEAN PLATELET VOLUME 7.4 FL (7.4-10.4); PLATELET COUNT 277 /CUMM (130-400); RBC DISTRIBUTION WIDTH 14.9 % (11.5-14.5); RED BLOOD CELL CT 3.12 /CUMM (4.70-6.10)
[2017-07-19 09:58] LABS: WHITE BLOOD CELL COUNT 108.8 /CUMM (4.8-10.8)
[2017-07-19 10:02] LABS: PTT 44 SEC (25-37)
[2017-07-19 10:08] LABS: PT 65.7 SEC (9.4-12.5)
--- NOTE | 2017-07-19 14:49 | Event Note ---
Event Note Event Note: Goals of care discussion with son done by Dr. Santiago -Pt is DNR -We will continue intubation till Sunday evening and Sunday morning till arrival of family members -There will be no escalation of care -No dialysis -no escalation of vasopressors no further increase of his pressors currently on levophid 5 micx -We will continue IVF -If patient condition deteriorates ago, call family and change patient comfort measures
[2017-07-19 15:10] LABS: PT 61.5 SEC (9.4-12.5)
[2017-07-19 16:00] VITALS: BP 134/70
[2017-07-20] VITALS: BP 143/81
[2017-07-20 04:59] LABS: ABSOLUTE BASOPHIL COUNT 0 /CUMM (0.0-0.2); ABSOLUTE EOSINOPHIL COUNT 0 /CUMM (0.0-0.7); ABSOLUTE LYMPH COUNT 0.6 /CUMM (1.2-3.4); ABSOLUTE MONOCYTE COUNT 0.1 /CUMM (0.10-0.60); BASOPHIL % 0 % (0.0-2.0); EOSINOPHIL % 0 % (0-5)
[2017-07-20 05:25] LABS: ABSOLUTE GRANULOCYTE CT 97.3 /CUMM (1.4-6.5); HEMATOCRIT 26.6 % (42-52); MEAN CORPUSCULAR HGB 31.2 PG (27.0-31.0); MEAN CORPUSCULAR HGB CONC 34.3 G/DL (33.0-37.0); MEAN PLATELET VOLUME 8.3 FL (7.4-10.4); PLATELET COUNT 269 /CUMM (130-400); RBC DISTRIBUTION WIDTH 15.3 % (11.5-14.5); RED BLOOD CELL CT 2.92 /CUMM (4.70-6.10)
[2017-07-20 05:32] LABS: PT 55.9 SEC (9.4-12.5)
[2017-07-20 05:33] LABS: GRANULOCYTE % 99.3 % (42.2-75.2); WHITE BLOOD CELL COUNT 97.9 /CUMM (4.8-10.8)
--- NOTE | 2017-07-20 06:55 | PN- Oncology ---
Subjective Subjective: Remains intubated Objective Vital Signs and I&Os Vital Signs Date Time Temp Pulse Resp B/P B/P Pulse O2 O2 Flow FiO2 Mean Ox Delivery Rate 07/20 0528 40 07/20 0400 98 Ventilator 40% 07/20 0333 40 07/20 0019 40 07/20 0000 98.0 88 18 143/81 99 Ventilator 40% 07/20 0000 99 Ventilator 40% 07/19 2355 75 143/81 07/19 2211 40 07/19 2000 98 Ventilator 40% 07/19 1920 40 07/19 1610 50 07/19 1600 98 Ventilator 50% 07/19 1600 97.0 94 20 134/70 94 Ventilator 50% 07/19 1415 50 07/19 1200 50 07/19 1200 91 Ventilator 50% 07/19 1101 Ventilator 50% 07/19 1003 70 70/49 07/19 0852 50 07/19 0800 94 Ventilator 50% 07/19 0800 97.8 70 20 80/50 94 Ventilator 50% Intake & Output 07/20 0800 07/20 0000 07/19 1600 07/19 0800 07/19 0000 07/18 1600 Intake Total 936 1358 2240 2020 Output Total 200 250 200 200 Balance 736 1108 2040 1820 Intake, IV 936 1358 2240 2020 Intake, Oral 0 Number 0 0 1 Bowel Movements Output, 0 50 100 Gastric Drainage Output, Urine 200 200 100 200 Patient 127 lb Weight Weight Bed scale Measurement Method Gen.: Intubated ENT: Sclera anicteric Chest: Decreased breath sounds Cor: RRR, no extra sounds Abdomen: Soft, bowel sounds present, no tenderness, no rebound Extremities: Without clubbing, cyanosis, or asymmetric edema Neurology: Moves all 4s Current Medications: Current Medications Sig/[place] Start time Last Medication Dose Route Stop Time Status Admin Albuterol Sulfate 3 ML Q4P PRN 07/19 1115 AC INH Albuterol Sulfate 2 PUF Q4-6 PRN PRN 07/19 0500 DC INH Atorvastatin Calcium 40 MG 1700 07/19 1700 AC 07/19 PO 1647 Budesonide/ 2 PUF BID 07/19 1000 DC Formoterol Fumarate INH Ceftazidime 1,000 MG Q12 07/19 1000 AC 07/19 IV 2202 Dextrose/Sodium 1,000 ML Q10H 07/19 1830 AC 07/20 Chloride IV 0513 Dextrose/Sodium 1,000 ML .Q4H 07/19 1430 DC 07/19 Chloride IV 07/19 1829 1400 Fentanyl Citrate 25 MCG Q2 PRN 07/19 1200 AC 07/19 IV 1704 Influenza Virus 0.5 ML ONCE ONE 07/19 2000 DC Vaccine IM 07/19 2000 Methylprednisolone 40 MG Q8 07/19 0630 AC 07/20 IV 0633 Metronidazole 500 MG IQ8 07/19 1600 AC 07/20 N/A 1 UNIT IV 0005 Norepinephrine 4 MG Q13H 07/19 2300 AC 07/19 Dextrose/Water 250 ML IV 2355 Norepinephrine 4 MG Q24H 07/19 0815 DC 07/19 Dextrose/Water 250 ML IV 07/19 2300 1003 Pantoprazole Sodium 40 MG DAILY 07/19 1000 AC 07/19 IV 1058 Phytonadione 1 MG ONE ONE 07/19 1045 DC 07/19 SC 07/19 1046 1200 Sodium Chloride 1,000 ML .Q4H 07/19 0815 DC 07/19 IV 1200 Sodium Chloride 1,000 ML Q10H 07/19 0500 DC 07/19 IV 07/20 1059 0500 Tiotropium [place] 1 PUF DAILY 07/19 1000 DC INH Vancomycin HCl 1,000 MG DAILY 07/19 1000 AC 07/19 Dextrose/Water 250 ML IV 1110 Results Last 24 Hours of Lab Results: Laboratory Tests 07/20 07/19 07/19 0420 1755 1440 Chemistry Sodium (137 - 145 mmol/L) 138 Potassium (3.5 - 5.1 mmol/L) 4.4 Chloride (98 - 107 mmol/L) 108 H Carbon Dioxide (22 - 30 mmol/L) 23 Anion Gap (5 - 16) 8 BUN (9 - 20 mg/dL) 42 H Creatinine (0.7 - 1.2 mg/dL) 1.2 Estimated GFR (>60 ml/min) 58 L Glucose (65 - 99 mg/dL) 215 H Calcium (8.4 - 10.2 mg/dL) 8.0 L Phosphorus (2.5 - 4.5 mg/dL) 3.4 Magnesium (1.6 - 2.3 mg/dL) 1.7 Total Bilirubin (0.2 - 1.3 mg/dL) 0.7 AST (17 - 59 U/L) 23 ALT (21 - 72 U/L) 18 L Troponin I (<0.11 ng/ml) 0.06 Albumin (3.5 - 5.0 g/dL) 2.3 L Coagulation PT (9.4 - 12.5 SEC) 55.9 *H 61.5 *H INR (0.90 - 1.17) 5.41 *H 5.96 *H Hematology CBC w Diff MAN DIFF ORDERED WBC (4.8 - 10.8 /CUMM) 97.9 *H RBC (4.70 - 6.10 /CUMM) 2.92 L Hgb (14.0 - 18.0 G/DL) 9.1 L Hct (42 - 52 %) 26.6 L MCV (80.0 - 94.0 FL) 91.0 MCH (27.0 - 31.0 PG) 31.2 H MCHC (33.0 - 37.0 G/DL) 34.3 RDW (11.5 - 14.5 %) 15.3 H Plt Count (130 - 400 /CUMM) 269 MPV (7.4 - 10.4 FL) 8.3 Gran % (42.2 - 75.2 %) 99.3 H Lymphocytes % (20.5 - 51.1 %) 0.6 L Monocytes % (1.7 - 9.3 %) 0.1 L Eosinophils % (0 - 5 %) 0 Basophils % (0.0 - 2.0 %) 0 Absolute Granulocytes (1.4 - 6.5 /CUMM) 97.3 H Segmented Neutrophils (42.2 - 75.2 %) 94 H Band Neutrophils (0.0 - 5.0 %) 6 H Absolute Lymphocytes (1.2 - 3.4 /CUMM) 0.6 L Absolute Monocytes (0.10 - 0.60 /CUMM) 0.1 Absolute Eosinophils (0.0 - 0.7 /CUMM) 0 Absolute Basophils (0.0 - 0.2 /CUMM) 0 Platelet Estimate (ADEQUATE) ADEQUATE Anisocytosis 1+ Elliptocytes FEW 07/19 07/19 1100 UNK Chemistry Sodium Cancelled Potassium Cancelled Chloride Cancelled Carbon Dioxide Cancelled Anion Gap Cancelled BUN Cancelled Creatinine Cancelled Glucose Cancelled Calcium Cancelled Phosphorus Cancelled Magnesium Cancelled Total Bilirubin Cancelled AST Cancelled ALT Cancelled Troponin I Cancelled Albumin Cancelled 07/19 07/19 07/19 0940 0915 0915 Chemistry Sodium (137 - 145 mmol/L) 143 Potassium (3.5 - 5.1 mmol/L) 4.4 Chloride (98 - 107 mmol/L) 108 H Carbon Dioxide (22 - 30 mmol/L) 27 Anion Gap (5 - 16) 9 BUN (9 - 20 mg/dL) 44 H Creatinine (0.7 - 1.2 mg/dL) 1.3 H Estimated GFR (>60 ml/min) 53 L Glucose (65 - 99 mg/dL) 67 Lactic Acid (0.7 - 2.1 mmol/L) 2.1 Uric Acid (3.5 - 8.5 mg/dL) 11.4 H 11.5 H Calcium (8.4 - 10.2 mg/dL) 8.6 Phosphorus (2.5 - 4.5 mg/dL) 4.1 Magnesium (1.6 - 2.3 mg/dL) 1.8 Total Bilirubin (0.2 - 1.3 mg/dL) 0.8 AST (17 - 59 U/L) 27 ALT (21 - 72 U/L) 24 Creatine Kinase (55 - 170 U/L) 31 L Albumin (3.5 - 5.0 g/dL) 2.6 L Coagulation PT (9.4 - 12.5 SEC) 65.7 *H INR (0.90 - 1.17) 6.37 *H APTT (25 - 37 SEC) 44 H Fibrinogen Activity (200 - 393 MG/DL) 214 D-Dimer High Sensitivty (0 - 243 ng/ml) 263 H Hematology CBC w Diff MAN DIFF ORDERED WBC (4.8 - 10.8 /CUMM) 108.8 *H RBC (4.70 - 6.10 /CUMM) 3.12 L Hgb (14.0 - 18.0 G/DL) 9.6 L Hct (42 - 52 %) 29.0 L MCV (80.0 - 94.0 FL) 92.9 MCH (27.0 - 31.0 PG) 31.0 MCHC (33.0 - 37.0 G/DL) 33.3 RDW (11.5 - 14.5 %) 14.9 H Plt Count (130 - 400 /CUMM) 277 MPV (7.4 - 10.4 FL) 7.4 Segmented Neutrophils (42.2 - 75.2 %) 88 H Band Neutrophils (0.0 - 5.0 %) 10 H Lymphocytes (20.5 - 51.1 %) 1 L Monocytes (1.7 - 9.3 %) 1 L Platelet Estimate (ADEQUATE) VERIFIED BY SMEAR 07/19 0800 Chemistry Total Bilirubin Cancelled Direct Bilirubin Cancelled AST Cancelled ALT Cancelled Alkaline Phosphatase Cancelled Total Protein Cancelled Albumin Cancelled Assessment/Plan Assessment/Recommendations: 1. Respiratory failure- ? Etiology ? weanable 2. Advanced lung cancer-poor prognosis 3. Hematologic status-improve white count Overall-grave prognosis. Patient is now DNR/DNI. Family decision regarding possible comfort care only
--- NOTE | 2017-07-20 07:43 | PN- Resident CRCU ---
Subjective HPI/CRCU Issues: -Acute hypoxic hypercarbic respiratory failure related to progressive lung cancer (Terminal lung cancer with multiple metastasis) and End-stage COPD with COPD exacerbation -Septic shock most likely secondary to diverticulitis with recent chemotherapy -Hypotension likely secondary to sepsis PNA vs diverticulitis -Stage IV SCLC -Supratherapeutic INR in setting of WHITNEY -WHITNEY is likely secondary to dehydration in setting of decreased PO intake -Hyperkalemia in setting of WHITNEY 24 Hour Events: Patient seen and examined. He continues to be intubated. Unresponsive Tmax 98 Heart rate ranging from 70s to 90s. Atrial fibrillation Blood pressure ranging from 120/72 to 80/doppler Intake 4534 output 650 Intubated AC RR 18 VT 500 FiO2 40 PEEP [address] Foleys catheter in place WBC count trending down to 97.9 with 99% granulocytes, H/H 9.1/26.6 platelet count 269 Sodium 138, potassium 4.4, magnesium 1.7, Cr 1.2, glucose 215, calcium 8.0 INR 5.41 CXR 07/20 pending Pt will be comfort care after arrival of the children expected on Sunday night or Sunday morning. Prognosis remains grave. There will be no escalation of care. Levophid was decreased to 2.5mcg overnight. He also recieved Vit K 1mg S/q yesterday, fluids D5 half normal saline running at 100 mL per hour. Objective Vital Signs & I&O Last 8 Hrs of Vitals and I&O: Vital Signs Date Time Temp Pulse Resp B/P B/P Pulse O2 O2 Flow FiO2 Mean Ox Delivery Rate 07/20 1142 40 07/20 1048 84 129/86 07/20 0859 40 07/20 0800 98 Ventilator 40% 07/20 0800 97.7 70 18 114/74 98 Ventilator 40% 07/20 0528 40 07/20 0400 98 Ventilator 40% 07/20 0333 40 07/20 0019 40 07/20 0000 98.0 88 18 143/81 99 Ventilator 40% / 0000 99 Ventilator 40% 07/19 2355 75 143/81 02/15 2211 40 07/19 2000 98 Ventilator 40% 07/19 1920 40 02 1610 50 02/15 1600 98 Ventilator 50% 07/19 1600 97.0 94 20 134/70 94 Ventilator 50% 07/19 1415 50 Intake & Output 07/20 1600 07/20 0800 07/20 0000 Intake Total 936 1358 Output Total 200 250 Balance 736 1108 Intake, IV 936 1358 Number 0 0 Bowel Movements Output, 0 50 Gastric Drainage Output, Urine 200 200 Exam General Appearance: intubated Head: atraumatic Respiratory: lungs clear Cardiovascular: s1 s2 Extremities: pedal edema Other Physical Findings: HEENT left pupil larger than the right,sluggishly reactive Current Medications: Current Medications Sig/[place] Start time Last Medication Dose Route Stop Time Status Admin Albuterol Sulfate 3 ML Q4P PRN 07/19 1115 AC INH Albuterol Sulfate 2 PUF Q4-6 PRN PRN 07/19 0500 DC INH Atorvastatin Calcium 40 MG 1700 07/19 1700 AC 07/19 PO 1647 Budesonide/ 2 PUF BID 07/19 1000 DC Formoterol Fumarate INH Ceftazidime 1,000 MG Q12 07/19 1000 AC 07/20 IV 1048 Dextrose/Sodium 1,000 ML Q10H 07/19 1830 AC 07/20 Chloride IV 0513 Dextrose/Sodium 1,000 ML .Q4H 07/19 1430 DC 07/19 Chloride IV 07/19 1829 1400 Fentanyl Citrate 25 MCG Q2 PRN 07/19 1200 AC 07/20 IV 1115 Influenza Virus 0.5 ML ONCE ONE 07/19 1999 DC 07/20 Vaccine IM 07/19 2001 1053 Methylprednisolone 40 MG Q8 07/19 0630 07/20 IV 0633 Metronidazole 500 MG IQ8 07/19 1600 AC 07/20 N/A 1 UNIT IV 0800 Norepinephrine 4 MG Q24H 07/20 0845 AC 07/20 Dextrose/Water 250 ML IV 1048 Norepinephrine 4 MG Q13H 07/19 2300 DC 07/19 Dextrose/Water 250 ML IV 2355 Norepinephrine 4 MG Q24H / 0815 DC 07/19 Dextrose/Water 250 ML IV 07/19 2300 1003 Pantoprazole Sodium 40 MG DAILY 07/19 1000 AC 07/20 IV 1049 Sodium Chloride 1,000 ML .Q4H 07/19 0815 DC 07/19 IV 1200 Sodium Chloride 1,000 ML Q10H 07/19 0500 DC 07/19 IV 07/20 1059 0500 Tiotropium [place] 1 PUF DAILY 07/19 1000 DC INH Vancomycin HCl 1,000 MG DAILY 07/19 1000 AC 07/20 Dextrose/Water 250 ML IV 1048 Impression/Plan Impression/Problem List Impression: This is a 81-year-old gentleman with end-stage COPD, 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 The patient is being evaluated and treated for following conditions Respiratory #Acute hypoxic hypercarbic respiratory failure related to progressive lung cancer (Terminal lung cancer with multiple metastasis) and End-stage COPD with COPD exacerbation as well -Continue mechanical ventilator -TRC nebs, Ventolin and Symbicort Spiriva -Continue Solu-Medrol 40 mg every 8 -Continue on Vancomycin and Ceftaz -Flu swab negative Infectious #Leukocytosis -improving today count 97.9 Appears to be from Leukomoid Reaction reaction. Tumor lysis less likely asking tumor is unresponsive to chemotherapy. Can also be related to chemotherapy with Neulasta. -Dr. Jensen has been consulted, recommended conservative management -F/u uric acid 11.4 #Septic shock most likely secondary to diverticulitis with recent chemotherapy Other possibilities include superimposed pneumonia but less likely -Continue ceftaz, vancomycin and Flagyl -Consider ID consult -IVF D5 half-normal saline at 100 mL per h Cardiovascular #Hypotension likely secondary to sepsis PNA vs diverticulitis -Currently on Levo 2.5mcg try to wean off -Titrate to maintain MAP>65MMhG - IVF D5 half-normal saline at 100 mL per h Hematology #Stage IV SCLC -Extremely poor prognosis. Goals of care discussion -Continue when necessary fentanyl, tried to wean off Ativan to avoid excessive sedation #Leukocytosis (see above) #Anemia Drop in H&H likely secondary to dilution -Monitor H&H #Supratherapeutic INR on warfarin setting of WHITNEY -Hold Warfarin and follow-up INR 5.41 slowly improving -Subcutaneous vitamin K 1 mg once yesterday -Head CT showed no acute intracranial pathology -Consider fresh frozen plasma if actively Metabolic #WHITNEY is likely secondary to dehydration in setting of decreased PO intake- Resolved -Monitor creatinine closely and IVF - creatinine 1.2 #Hyperkalemia in setting of WHITNEY- Resolved -Tumor lysis syndrome less likely - Patient received Ca gluconate, insulin and dextrose. - IVF and consider K- axylate if hyperkalemic Alimentary #D 5/2 normal saline, nothing by mouth -Continue IV Protonix Nephro #WHITNEY - Resolved Continue IVF #DVT prophylaxis Heparin 5000IU TID SC #CODE STATUS family meeting planned this afternoon Problem List: 1. Hypercapnic respiratory failure 2. Smoker Pain Ratin Tomorrow's Labs & Rationales: none as per family wishes Plan DVT/Prophylaxis: mechanical, pharmacological
[2017-07-20 08:00] VITALS: BP 114/74
--- NOTE | 2017-07-20 08:17 | RADIOLOGY REPORT ---
EXAMINATION: XR PORTABLE CHEST CLINICAL INFORMATION: Tube and line position COMPARISON: 07/19/2017 TECHNIQUE: Portable frontal view of the chest was obtained. FINDINGS: Endotracheal tube is located 4.8 cm above the faith. The enteric tube is poorly visualized but does appear to extend below the diaphragm and into the stomach. Lungs are hyperexpanded from emphysematous disease. 2 cm nodule of the superior segment of the right lower lobe is faintly visualized. Cardiac silhouette remains normal in size and there is no pulmonary edema. Persistent small right pleural effusion. Nonaggressive chondroid calcification in the partially visualized proximal left humeral metaphysis, consistent with enchondroma. The destructive mass of the manubrium is not well seen on this exam. IMPRESSION: 1. Endotracheal tube in satisfactory position at 4.8 cm above the faith. 2. Emphysematous lung disease. 3. Persistent small right pleural effusion. 4. Ill-defined 2 cm nodule of superior segment of right lower lobe. 5. The known, destructive lesion of the manubrium is not well seen on this exam.
--- NOTE | 2017-07-20 09:14 | PN- CRCU ---
Subjective HPI/Critical Care Issues: DOing about the same On 2 mics Afebrile Remains intubated Objective Current Medications: Current Medications Sig/Chalino Start time Last Medication Dose Route Stop Time Status Admin Albuterol Sulfate 3 ML Q4P PRN 07/19 1115 AC INH Albuterol Sulfate 2 PUF Q4-6 PRN PRN 07/19 0500 DC INH Atorvastatin Calcium 40 MG 1700 07/19 1700 AC 07/19 PO 1647 Budesonide/ 2 PUF BID 07/19 1000 DC Formoterol Fumarate INH Ceftazidime 1,000 MG Q12 07/19 1000 AC 07/19 IV 2202 Dextrose/Sodium 1,000 ML Q10H 07/19 1830 AC 07/20 Chloride IV 0513 Dextrose/Sodium 1,000 ML .Q4H 07/19 1430 DC 07/19 Chloride IV 07/19 1829 1400 Fentanyl Citrate 25 MCG Q2 PRN 07/19 1200 AC 07/19 IV 1704 Influenza Virus 0.5 ML ONCE ONE 07/19 2000 DC Vaccine IM 07/19 2000 Methylprednisolone 40 MG Q8 07/19 0630 AC 07/20 IV 0633 Metronidazole 500 MG IQ8 07/19 1600 AC 07/20 N/A 1 UNIT IV 0005 Norepinephrine 4 MG Q24H 07/20 0845 AC Dextrose/Water 250 ML IV Norepinephrine 4 MG Q13H 07/19 2300 DC 07/19 Dextrose/Water 250 ML IV 2355 Norepinephrine 4 MG Q24H 07/19 0815 DC 07/19 Dextrose/Water 250 ML IV 07/19 2300 1003 Pantoprazole Sodium 40 MG DAILY 07/19 1000 AC 07/19 IV 1058 Phytonadione 1 MG ONE ONE 07/19 1045 DC 07/19 SC 07/19 1046 1200 Sodium Chloride 1,000 ML .Q4H 07/19 0815 DC 07/19 IV 1200 Sodium Chloride 1,000 ML Q10H 07/19 0500 DC 07/19 IV 07/20 1059 0500 Tiotropium Gunlock 1 PUF DAILY 07/19 1000 DC INH Vancomycin HCl 1,000 MG DAILY 07/19 1000 AC 07/19 Dextrose/Water 250 ML IV 1110 Vital Signs & I&O Last 24 Hrs of Vitals and I&O: Vital Signs Date Time Temp Pulse Resp B/P B/P Pulse O2 O2 Flow FiO2 Mean Ox Delivery Rate 07/20 0528 40 07/20 0400 98 Ventilator 40% 07/20 0333 40 07/20 0019 40 07/20 0000 98.0 88 18 143/81 99 Ventilator 40% 07/20 0000 99 Ventilator 40% 07/19 2355 75 143/81 / 2211 40 07/19 2000 98 Ventilator 40% 07/19 1920 40 07/19 1610 50 07/19 1600 98 Ventilator 50% 07/19 1600 97.0 94 20 134/70 94 Ventilator 50% 07/19 1415 50 07/19 1200 50 07/19 1200 91 Ventilator 50% 07/19 1101 Ventilator 50% 07/19 1003 70 70/49 Intake & Output 07/20 1600 07/20 0800 07/20 0000 Intake Total 936 1358 Output Total 200 250 Balance 736 1108 Intake, IV 936 1358 Number 0 0 Bowel Movements Output, 0 50 Gastric Drainage Output, Urine 200 200 Laboratory Tests 07/20 07/19 07/19 0420 1755 1440 Chemistry Sodium (137 - 145 mmol/L) 138 Potassium (3.5 - 5.1 mmol/L) 4.4 Chloride (98 - 107 mmol/L) 108 H Carbon Dioxide (22 - 30 mmol/L) 23 Anion Gap (5 - 16) 8 BUN (9 - 20 mg/dL) 42 H Creatinine (0.7 - 1.2 mg/dL) 1.2 Estimated GFR (>60 ml/min) 58 L Glucose (65 - 99 mg/dL) 215 H Calcium (8.4 - 10.2 mg/dL) 8.0 L Phosphorus (2.5 - 4.5 mg/dL) 3.4 Magnesium (1.6 - 2.3 mg/dL) 1.7 Total Bilirubin (0.2 - 1.3 mg/dL) 0.7 AST (17 - 59 U/L) 23 ALT (21 - 72 U/L) 18 L Troponin I (<0.11 ng/ml) 0.06 Albumin (3.5 - 5.0 g/dL) 2.3 L Coagulation PT (9.4 - 12.5 SEC) 55.9 *H 61.5 *H INR (0.90 - 1.17) 5.41 *H 5.96 *H Hematology CBC w Diff MAN DIFF ORDERED WBC (4.8 - 10.8 /CUMM) 97.9 *H RBC (4.70 - 6.10 /CUMM) 2.92 L Hgb (14.0 - 18.0 G/DL) 9.1 L Hct (42 - 52 %) 26.6 L MCV (80.0 - 94.0 FL) 91.0 MCH (27.0 - 31.0 PG) 31.2 H MCHC (33.0 - 37.0 G/DL) 34.3 RDW (11.5 - 14.5 %) 15.3 H Plt Count (130 - 400 /CUMM) 269 MPV (7.4 - 10.4 FL) 8.3 Gran % (42.2 - 75.2 %) 99.3 H Lymphocytes % (20.5 - 51.1 %) 0.6 L Monocytes % (1.7 - 9.3 %) 0.1 L Eosinophils % (0 - 5 %) 0 Basophils % (0.0 - 2.0 %) 0 Absolute Granulocytes (1.4 - 6.5 /CUMM) 97.3 H Segmented Neutrophils (42.2 - 75.2 %) 94 H Band Neutrophils (0.0 - 5.0 %) 6 H Absolute Lymphocytes (1.2 - 3.4 /CUMM) 0.6 L Absolute Monocytes (0.10 - 0.60 /CUMM) 0.1 Absolute Eosinophils (0.0 - 0.7 /CUMM) 0 Absolute Basophils (0.0 - 0.2 /CUMM) 0 Platelet Estimate (ADEQUATE) ADEQUATE Anisocytosis 1+ Elliptocytes FEW 07/19 07/19 1100 UNK Chemistry Sodium Cancelled Potassium Cancelled Chloride Cancelled Carbon Dioxide Cancelled Anion Gap Cancelled BUN Cancelled Creatinine Cancelled Glucose Cancelled Calcium Cancelled Phosphorus Cancelled Magnesium Cancelled Total Bilirubin Cancelled AST Cancelled ALT Cancelled Troponin I Cancelled Albumin Cancelled 07/19 07/19 07/19 0940 0915 0915 Chemistry Sodium (137 - 145 mmol/L) 143 Potassium (3.5 - 5.1 mmol/L) 4.4 Chloride (98 - 107 mmol/L) 108 H Carbon Dioxide (22 - 30 mmol/L) 27 Anion Gap (5 - 16) 9 BUN (9 - 20 mg/dL) 44 H Creatinine (0.7 - 1.2 mg/dL) 1.3 H Estimated GFR (>60 ml/min) 53 L Glucose (65 - 99 mg/dL) 67 Lactic Acid (0.7 - 2.1 mmol/L) 2.1 Uric Acid (3.5 - 8.5 mg/dL) 11.4 H 11.5 H Calcium (8.4 - 10.2 mg/dL) 8.6 Phosphorus (2.5 - 4.5 mg/dL) 4.1 Magnesium (1.6 - 2.3 mg/dL) 1.8 Total Bilirubin (0.2 - 1.3 mg/dL) 0.8 AST (17 - 59 U/L) 27 ALT (21 - 72 U/L) 24 Creatine Kinase (55 - 170 U/L) 31 L Albumin (3.5 - 5.0 g/dL) 2.6 L Coagulation PT (9.4 - 12.5 SEC) 65.7 *H INR (0.90 - 1.17) 6.37 *H APTT (25 - 37 SEC) 44 H Fibrinogen Activity (200 - 393 MG/DL) 214 D-Dimer High Sensitivty (0 - 243 ng/ml) 263 H Hematology CBC w Diff MAN DIFF ORDERED WBC (4.8 - 10.8 /CUMM) 108.8 *H RBC (4.70 - 6.10 /CUMM) 3.12 L Hgb (14.0 - 18.0 G/DL) 9.6 L Hct (42 - 52 %) 29.0 L MCV (80.0 - 94.0 FL) 92.9 MCH (27.0 - 31.0 PG) 31.0 MCHC (33.0 - 37.0 G/DL) 33.3 RDW (11.5 - 14.5 %) 14.9 H Plt Count (130 - 400 /CUMM) 277 MPV (7.4 - 10.4 FL) 7.4 Segmented Neutrophils (42.2 - 75.2 %) 88 H Band Neutrophils (0.0 - 5.0 %) 10 H Lymphocytes (20.5 - 51.1 %) 1 L Monocytes (1.7 - 9.3 %) 1 L Platelet Estimate (ADEQUATE) VERIFIED BY SMEAR 07/19 07/19 07/19 07/19 0800 0630 0608 0520 Blood Gas pH (7.35 - 7.45 PH) 7.49 H pCO2 (35 - 45 TORR) 27 L pO2 (80 - 100 TORR) 569 H HCO3 (21 - 28 MEQ/L) 21 ABG O2 Sat (Measured) (>96.0 %) 99.0 P-50 (Temp Corrected) Y Carboxyhemoglobin (1.5 - 5.0 %) 0.1 L O2 Concentration % 100% Temperature (97.0 - 100.0 FARH) 96.9 L Respiration Rate (BPM) 24 O2 Delivery Method ESPRIT Vent Mode AC Expiratory Pressure (CMH2O/P) 5 Tidal Volume (CC) 500 Chemistry Sodium Cancelled Potassium Cancelled Chloride Cancelled Carbon Dioxide Cancelled Anion Gap Cancelled BUN Cancelled Creatinine Cancelled Glucose Cancelled Calcium Cancelled Phosphorus Cancelled Magnesium Cancelled Total Bilirubin Cancelled Cancelled Direct Bilirubin Cancelled AST Cancelled Cancelled ALT Cancelled Cancelled Alkaline Phosphatase Cancelled Total Protein Cancelled Albumin Cancelled Cancelled Coagulation Fibrinogen Activity Cancelled Miscellaneous Phlebotomy Draw Site LEFT RADIAL 07/19 07/19 0500 0446 Coagulation PT Cancelled INR Cancelled Toxicology Methadone Screen Cancelled Barbiturate Screen Cancelled Ur Phencyclidine Scrn Cancelled Amphetamines Screen Cancelled U Benzodiazepines Scrn Cancelled Urine Cocaine Screen Cancelled Urine Cannabis Screen Cancelled 07/19 07/19 0400 0230 Blood Gas pH (7.35 - 7.45 PH) 7.10 *L pCO2 (35 - 45 TORR) 89 *H pO2 (80 - 100 TORR) 95 HCO3 (21 - 28 MEQ/L) 27 ABG O2 Sat (Measured) (>96.0 %) 93.0 L P-50 (Temp Corrected) Y Carboxyhemoglobin (1.5 - 5.0 %) 2.4 O2 Concentration % 10 LPM Temperature (97.0 - 100.0 FARH) 95.9 L O2 Delivery Method NEB VIA A/M Miscellaneous Phlebotomy Draw Site LEFT RADIAL Toxicology Urine Opiates Screen (>2000 NG/ML) < 100.00 Methadone Screen (>300 NG/ML) < 40 Barbiturate Screen (>200 NG/ML) < 60 Ur Phencyclidine Scrn (>25 NG/ML) < 6.00 Amphetamines Screen (>1000 NG/ML) 141 U Benzodiazepines Scrn (>200 NG/ML) < 85 Urine Cocaine Screen (>300 NG/ML) < 50 Urine Cannabis Screen (>50 NG/ML) < 5.00 Urines Urine Color (YEL,AMB,STR) YEL Urine Clarity (CLEAR) HAZY H Urine pH (5.0 - 8.0) 6.0 Ur Specific [place] (1.001 - 1.035) >= 1.030 Urine Protein (NEG,<30 MG/DL) 100 H Urine Ketones (NEG) NEG Urine Nitrite (NEG) NEG Urine Bilirubin (NEG) NEG Urine Urobilinogen (0.1 - 1.0 EU/dl) 0.2 Ur Leukocyte Esterase (NEG) NEG Ur Microscopic SEDIMENT EXAMINED Urine RBC (0 - 5 /HPF) 1-3 Urine WBC (0 - 2 /HPF) 1-3 H Urine Bacteria (NEG/NONE) MANY H Urine Hemoglobin (NEG) SMALL H Urine Glucose (N MG/DL) NEG 07/19 0220 Chemistry Sodium (137 - 145 mmol/L) 142 Potassium (3.5 - 5.1 mmol/L) 5.9 H Chloride (98 - 107 mmol/L) 104 Carbon Dioxide (22 - 30 mmol/L) 29 Anion Gap (5 - 16) 10 BUN (9 - 20 mg/dL) 49 H Creatinine (0.7 - 1.2 mg/dL) 1.4 H Estimated GFR (>60 ml/min) 49 L BUN/Creatinine Ratio (7 - 25 %) 35.0 H Glucose (65 - 99 mg/dL) 132 H Lactic Acid (0.7 - 2.1 mmol/L) 1.8 Calcium (8.4 - 10.2 mg/dL) 9.3 Phosphorus (2.5 - 4.5 mg/dL) 6.2 H Total Bilirubin (0.2 - 1.3 mg/dL) 0.8 AST (17 - 59 U/L) 36 ALT (21 - 72 U/L) 24 Alkaline Phosphatase (< 127 U/L) 161 H Creatine Kinase (55 - 170 U/L) 44 L Troponin I (<0.11 ng/ml) 0.03 Total Protein (6.3 - 8.2 g/dL) 6.1 L Albumin (3.5 - 5.0 g/dL) 3.6 Globulin (1.9 - 4.2 gm/dL) 2.5 Albumin/Globulin Ratio (1.1 - 2.2 %) 1.4 Coagulation PT (9.4 - 12.5 SEC) 61.6 *H INR (0.90 - 1.17) 5.97 *H APTT (25 - 37 SEC) 45 H Hematology CBC w Diff MAN DIFF ORDERED WBC (4.8 - 10.8 /CUMM) 164.2 *H RBC (4.70 - 6.10 /CUMM) 3.62 L Hgb (14.0 - 18.0 G/DL) 11.6 L Hct (42 - 52 %) 33.9 L MCV (80.0 - 94.0 FL) 93.7 MCH (27.0 - 31.0 PG) 32.0 H MCHC (33.0 - 37.0 G/DL) 34.1 RDW (11.5 - 14.5 %) 15.4 H Plt Count (130 - 400 /CUMM) 485 H MPV (7.4 - 10.4 FL) 7.5 Segmented Neutrophils (42.2 - 75.2 %) 90 H Band Neutrophils (0.0 - 5.0 %) 8 H Lymphocytes (20.5 - 51.1 %) 1 L Monocytes (1.7 - 9.3 %) 1 L Nucleated RBCs (0.0 - 0.0 /100WBC) 1 H Platelet Estimate (ADEQUATE) ADEQUATE Basophilic Stippling RARE Anisocytosis 1+ Stomatocytes FEW Elliptocytes FEW Microbiology Date/Time Procedure - Status Source Growth 07/19 2200 Respiratory Culture - RES LOWER RESP 07/19 2200 Gram Stain - RES LOWER RESP 07/19 1445 Surveillance Culture - RECD UPPER RESP 07/19 1445 Surveillance Culture - RECD GI 07/19 1030 Blood Culture - RECD BLOOD 07/19 0515 Influenza Virus A & B Rapid Smear - COMP NASOPHARYN 07/19 0400 Urine Culture - RECD URINE ROUT 07/19 0220 Blood Culture - RES BLOOD Impression/Plan Impression/Plan Impression/Plan: Exam General Appearance patient intubated, sedation HEENT left pupil larger than the right,sluggishly reactive Cardiovascular Normal S1, Normal S2, No Murmurs Lungs Clear to Auscultation Abdomen Soft Extremities bilateral pedal edema IMPRESSION This is a 81-year-old gentleman with end-stage COPD, 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 despite chemotherapy with very poor performance status, paroxysmal atrial fibrillation he is on anticoagulation, hypertension, hyperlipidemia, previous renal cell carcinoma with previous surgery, chronic hoarseness of voice, recent 2 courses of chemotherapy for small cell lung cancer with no clinical response so far with advancing an enlarging malignancy now here with * Acute hypercarbic and hypoxemic respiratory failure related to progressive lung cancer compounded by COPD exacerbation * Shock and sepsis most likely diverticulitis with recent chemotherapy * Significantly elevated WBC most likely related to his Neulasta and resp insuff may be relateto it however (Reported ARDS but clinically not consistant with that clinical picture) * Supratherapeutic INR from warfarin acute kidney disease * Ischemic heart disease with paroxysmal A.fib * Terminal lung cancer with multiple metastasis * Poor performance status and cachexia * End-stage COPD with COPD exacerbation as well RECOMMENDATION * Patient's overall prognosis is grim and poor. ( I Had had a long conversation with the patient and he was very clear that he did not want to be on any life support for a prolonged period time and he wanted an attempt to be intubated one time. And he was quite sure that he did not want to suffer his overall prognosis was poor). Discueed with the with the family regarding this. * In the meantime continues mechanical ventilator * Intravenous steroids * COnt to follow uric acid * IVf 100 mL * Wean levo * Reduce ativan, prn fentanyl * Continue intravenous proton pump inhibitor * Cont all abx and will decide after tommorow Prognosis is grim and we'll discuss with family about his previous wishes and patient may be a candidate for terminal extubation if he does not improve in the next day Patient is critically ill total time spent 43 minutes
--- NOTE | 2017-07-20 12:35 | Event Note ---
See Addendum Event Note Event Note: I talked to patient's son and daughter and updated them regarding current situation and prognosis. There and her brother is finding tonight. They want the patient to remain intubated until then.Want to say final goodbyes. Family does not want any blood work and wants to keep patient comfortable Depression status continues to be DNR. Patient will continue to be intubated. If signs of bleeding consider fresh frozen plasma. Continue IVF and Levophed. No escalation of care or escalation of vasopressors. They will change CODE STATUS to comfort after the third sibling arrives.
[2017-07-20 16:00] VITALS: BP 110/70
[2017-07-21] VITALS: BP 108/84
[2017-07-21 08:00] VITALS: BP 100/60
--- NOTE | 2017-07-21 08:38 | PN- Resident CRCU ---
Subjective HPI/CRCU Issues: -Acute hypoxic hypercarbic respiratory failure related to progressive lung cancer (Terminal lung cancer with multiple metastasis) and End-stage COPD with COPD exacerbation -Septic shock most likely secondary to diverticulitis with recent chemotherapy -Hypotension likely secondary to sepsis PNA vs diverticulitis -Stage IV SCLC -Supratherapeutic INR in setting of WHITNEY -WHITNEY is likely secondary to dehydration in setting of decreased PO intake -Hyperkalemia in setting of WHITNEY 24 Hour Events: Doing poorly,Intubated and sedated Difficult to arouse All children present, Had a family meeting today, ready to extubate terminally. Questions answered do not wish for autopsy. Patient will be converted to comfort measures Objective Vital Signs & I&O Last 8 Hrs of Vitals and I&O: Intake & Output 07/21 1600 Intake Total Output Total Balance Patient 127 lb Weight Exam General Appearance: intubated Current Medications: Current Medications Sig/[place] Start time Last Medication Dose Route Stop Time Status Admin Albuterol Sulfate 3 ML Q4P PRN 07/19 1115 DC INH Atorvastatin Calcium 40 MG 1700 07/19 1700 DC 07/20 PO 1836 Ceftazidime 1,000 MG Q12 07/19 1000 DC 07/21 IV 1000 Dextrose/Sodium 1,000 ML Q10H 07/19 1830 DC 07/21 Chloride IV 0549 Fentanyl Citrate 100 MCG .STK-MED ONE 07/20 1935 DC IM 07/20 1936 Fentanyl Citrate 100 MCG .STK-MED ONE 07/20 1427 DC IM 07/20 1428 Fentanyl Citrate 25 MCG Q2 PRN 07/19 1200 DC 07/20 IV 1945 Lorazepam 0 Q1P PRN 07/21 1345 UNVr IV Lorazepam 1 MG ONCE ONE 07/20 1430 DC 07/20 IV 07/20 1431 1430 Methylprednisolone 40 MG Q8 07/19 0630 DC 07/21 IV 0549 Metronidazole 500 MG IQ8 07/19 1600 DC 07/21 N/A 1 UNIT IV 0800 Morphine Sulfate 2 MG Q2P PRN 07/21 1345 UNVr IV Morphine Sulfate 2 MG ONCE ONE 07/21 1200 DC 07/21 IV 07/21 1201 1211 Norepinephrine 4 MG Q24H 07/20 0845 DC 07/20 Dextrose/Water 250 ML IV 1048 Pantoprazole Sodium 40 MG DAILY 07/19 1000 DC 07/21 IV 1000 Scopolamine HBr 1 PAT Q72H 07/21 1345 UNVr TOP Vancomycin HCl 1,000 MG DAILY 07/19 1000 DC 07/21 Dextrose/Water 250 ML IV 1000 Impression/Plan Impression/Problem List Impression: This is a 81-year-old gentleman with end-stage COPD, 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 The patient been converted to comfort measures only as per family wishes. -------- Respiratory #Acute hypoxic hypercarbic respiratory failure related to progressive lung cancer (Terminal lung cancer with multiple metastasis) and End-stage COPD with COPD exacerbation as well -Continue mechanical ventilator -TRC nebs, Ventolin and Symbicort Spiriva -Continue Solu-Medrol 40 mg every 8 -Continue on Vancomycin and Ceftaz -Flu swab negative Infectious #Leukocytosis -improving today count 97.9 Appears to be from Leukomoid Reaction reaction. Tumor lysis less likely asking tumor is unresponsive to chemotherapy. Can also be related to chemotherapy with Neulasta. -Dr. Jensen has been consulted, recommended conservative management -F/u uric acid 11.4 #Septic shock most likely secondary to diverticulitis with recent chemotherapy Other possibilities include superimposed pneumonia but less likely -Continue ceftaz, vancomycin and Flagyl -Consider ID consult -IVF D5 half-normal saline at 100 mL per h Cardiovascular #Hypotension likely secondary to sepsis PNA vs diverticulitis -Currently on Levo 2.5mcg try to wean off -Titrate to maintain MAP>65MMhG - IVF D5 half-normal saline at 100 mL per h Hematology #Stage IV SCLC -Extremely poor prognosis. Goals of care discussion -Continue when necessary fentanyl, tried to wean off Ativan to avoid excessive sedation #Leukocytosis (see above) #Anemia Drop in H&H likely secondary to dilution -Monitor H&H #Supratherapeutic INR on warfarin setting of WHITNEY -Hold Warfarin and follow-up INR 5.41 slowly improving -Subcutaneous vitamin K 1 mg once yesterday -Head CT showed no acute intracranial pathology -Consider fresh frozen plasma if actively Metabolic #WHITNEY is likely secondary to dehydration in setting of decreased PO intake- Resolved -Monitor creatinine closely and IVF - creatinine 1.2 #Hyperkalemia in setting of WHITNEY- Resolved -Tumor lysis syndrome less likely - Patient received Ca gluconate, insulin and dextrose. - IVF and consider K- axylate if hyperkalemic Alimentary #D 5/2 normal saline, nothing by mouth -Continue IV Protonix Nephro #WHITNEY - Resolved Continue IVF #DVT prophylaxis Heparin 5000IU TID SC #CODE STATUS family meeting planned this afternoon Problem List: 1. COPD exacerbation Pain Ratin Tomorrow's Labs & Rationales: none Plan DVT/Prophylaxis: mechanical, pharmacological
--- NOTE | 2017-07-21 10:02 | PN- CRCU ---
Subjective HPI/Critical Care Issues: Doing poorly Intubated and sedated Difficult to arouse Family meetings were held and triple times and patient's family now does not wish for him to get anymore blood work etc. Objective Current Medications: Current Medications Sig/[place] Start time Last Medication Dose Route Stop Time Status Admin Albuterol Sulfate 3 ML Q4P PRN 07/19 1115 AC INH Atorvastatin Calcium 40 MG 1700 07/19 1700 AC 07/20 PO 1836 Ceftazidime 1,000 MG Q12 07/19 1000 AC 07/20 IV 2245 Dextrose/Sodium 1,000 ML Q10H 07/19 1830 AC 07/21 Chloride IV 0549 Fentanyl Citrate 100 MCG .STK-MED ONE 07/20 1935 DC IM 07/20 1936 Fentanyl Citrate 100 MCG .STK-MED ONE 07/20 1427 DC IM 07/20 1428 Fentanyl Citrate 100 MCG .STK-MED ONE 07/20 1110 DC IM 07/20 1111 Fentanyl Citrate 25 MCG Q2 PRN 07/19 1200 AC 07/20 IV 1945 Influenza Virus 0.5 ML .STK-MED ONE 07/20 1044 DC Vaccine IM 07/20 1045 Lorazepam 1 MG ONCE ONE 07/20 1430 DC 07/20 IV 07/20 1431 1430 Methylprednisolone 40 MG Q8 07/19 0630 07/21 IV 0549 Metronidazole 500 MG IQ8 07/19 1600 AC 07/20 N/A 1 UNIT IV 2307 Norepinephrine 4 MG Q24H 07/20 0845 AC 07/20 Dextrose/Water 250 ML IV 1048 Pantoprazole Sodium 40 MG DAILY 07/19 1000 AC 07/20 IV 1049 Vancomycin HCl 1,000 MG DAILY 07/19 1000 AC 07/20 Dextrose/Water 250 ML IV 1048 Vital Signs & I&O Last 24 Hrs of Vitals and I&O: Vital Signs Date Time Temp Pulse Resp B/P B/P Pulse O2 O2 Flow FiO2 Mean Ox Delivery Rate 07/21 0811 40 07/21 0607 40 07/21 0400 100 Ventilator 40% 07/21 0348 40 07/21 0139 40 07/21 0000 97.1 82 18 108/84 98 Ventilator 40% 07/21 0000 98 Ventilator 40% 07/20 2248 40 07/20 2052 40 07/20 2000 98 Ventilator 40% 07/20 1614 40 07/20 1600 96 Ventilator 40% 07/20 1600 97.0 90 18 110/70 96 Ventilator 40% 07/20 1409 40 07/20 1200 40 Ventilator 7.5L 07/20 1142 40 07/20 1048 84 129/86 Intake & Output 07/21 1600 07/21 0800 07/21 0000 Intake Total 712 856 Output Total 150 245 Balance 562 611 Intake, IV 712 856 Intake, Oral 0 Number 0 Bowel Movements Output, Urine 150 245 Impression/Plan Impression/Plan Impression/Plan: Impression/Plan Impression/Plan: Exam General Appearance patient intubated, sedation HEENT left pupil larger than the right,sluggishly reactive Cardiovascular Normal S1, Normal S2, No Murmurs Lungs Clear to Auscultation Abdomen Soft Extremities bilateral pedal edema IMPRESSION This is a 81-year-old gentleman with end-stage COPD, 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 despite chemotherapy with very poor performance status, paroxysmal atrial fibrillation he is on anticoagulation, hypertension, hyperlipidemia, previous renal cell carcinoma with previous surgery, chronic hoarseness of voice, recent 2 courses of chemotherapy for small cell lung cancer with no clinical response so far with advancing an enlarging malignancy now here with * Acute hypercarbic and hypoxemic respiratory failure related to progressive lung cancer compounded by COPD exacerbation * Shock and sepsis most likely diverticulitis with recent chemotherapy * Significantly elevated WBC most likely related to his Neulasta and resp insuff may be relateto it however (Reported ARDS but clinically not consistant with that clinical picture) * Supratherapeutic INR from warfarin acute kidney disease * Ischemic heart disease with paroxysmal A.fib * Terminal lung cancer with multiple metastasis * Poor performance status and cachexia * End-stage COPD with COPD exacerbation as well RECOMMENDATION * Patient's overall prognosis is grim and poor. ( I Had had a long conversation with the patient and he was very clear that he did not want to be on any life support for a prolonged period time and he wanted an attempt to be intubated one time. And he was quite sure that he did not want to suffer his overall prognosis was poor). Discueed with the with the family regarding this. * In the meantime continues mechanical ventilator * Intravenous steroids * IVf 100 mL * Wean levo * Reduce ativan, prn fentanyl * Continue intravenous proton pump inhibitor * Cont all abx Prognosis is grim and we'll discuss with family about his previous wishes and patient may made comfort care soon when all the family arrives Patient is critically ill total time spent 43 minutes
--- NOTE | 2017-07-21 13:39 | Discharge Summary ---
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 The patient was converted to comfort measures only as per family wishes. He was extubated on 07/21 after arrival of all children and transferred to general medicine floor. He was pronounced on 07/22/2017 at 6:50 AM secondary to cardiopulmonary arrest. -------- He was treated and evaluated for following conditions Respiratory #Acute hypoxic hypercarbic respiratory failure related to progressive lung cancer (Terminal lung cancer with multiple metastasis) and End-stage COPD with COPD exacerbation as well -D/C mechanical ventilator -Solu-Medrol 40 mg later d/syed -Vancomycin and Ceftaz d/syed -Flu swab negative Infectious #Leukocytosis -improving today count 97.9 Appears to be from Leukomoid Reaction reaction. Tumor lysis less likely asking tumor is unresponsive to chemotherapy. Can also be related to chemotherapy with Neulasta. -Dr. Jensen has been consulted, recommended conservative management #Septic shock most likely secondary to diverticulitis with recent chemotherapy Other possibilities include superimposed pneumonia but less likely -Initially on ceftaz, vancomycin and Flagyl discontinued -IVF D5 half-normal saline at 100 mL per h Cardiovascular #Hypotension likely secondary to sepsis PNA vs diverticulitis -Currently on Levo 2.5mcg try to wean off, no escalation of care -Titrated to maintain MAP>65MMhG, later d/syed -IVF D5 half-normal saline at 100 mL per h Hematology #Stage IV SCLC -Extremely poor prognosis. -Continue when necessary fentanyl #Leukocytosis (see above) #Anemia Drop in H&H likely secondary to dilution -H&H monitered #Supratherapeutic INR on warfarin in setting of WHITNEY -Warfarin on hold and INR slowly improving -Subcutaneous vitamin K 1 mg once -Head CT showed no acute intracranial pathology Metabolic #WHITNEY is likely secondary to dehydration in setting of decreased PO intake- Resolved -creatinine monitored closely and IVF #Hyperkalemia in setting of WHITNEY- Resolved -Tumor lysis syndrome less likely -Patient received Ca gluconate, insulin and dextrose. -IVF and consider K- axylate if hyperkalemic Alimentary #D 5/2 normal saline, nothing by mouth -IV Protonix later d/syed Nephro #WHITNEY - Resolved Continue IVF DVT prophylaxis Heparin 5000IU TID SC #CODE STATUS COMFORT Care Allergies: Coded Allergies: NO KNOWN ALLERGIES (12/23/15) Disposition Summary Disposition Principal Diagnosis: Acute hypoxic hypercarbic respiratory failure related to progressive lung cancer (Terminal lung cancer with multiple metastasis) and End-stage COPD with COPD exacerbation as well Additional Diagnosis: Septic shock most likely secondary to diverticulitis with recent chemotherapy Discharge Disposition: Discharge Instructions General Discharge Information Code Status: Comfort Care Only Patient's Diet: n/a Patient's Activity: n/a Follow-Up Instructions/Appts: n/a Medications at Discharge Discharge Medications: The following medications have been changed: Old: Losartan Potassium (Losartan Potassium) 50 MG TABLET 50 Milligram ORAL DAILY Days = 30 New: Losartan Potassium (Losartan Potassium) 50 MG TABLET 0.5 Milligram ORAL DAILY Qty = 30 Comments: Last Taken: 12/25/15 Time:9:47A.M Copies To: Ester MEDINA,Karol Gordon MD Review Statement Documenting Attending: Jack MEDINA,Fabrice Hodge
[2017-07-21 16:00] VITALS: BP 110/64
[2017-07-21 22:03] VITALS: BP 110/64
[2017-07-22 07:07] VITALS: BP 116/66
--- NOTE | 2017-07-22 07:07 | Event Note ---
Event Note Event Note: Situation: Was paged by the nurse because the patient some stopped breathing , I examined the patient, patient was unresponsive, pupils were dilated and fixed, no respiratory movement, no heart sounds, no reflexes. Patient is comfort measure, family were at bedside. Patient was pronounced on 07/22/2017 at 6 :[address] Santiago was notified. 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
== END 2017-07-22 06:50 | disposition expired | DRG 871 ==
LOC: ERH 02:11 → CRI 03:57 → ERHI 03:57 → ENRESERVTM 04:43 → ENRESERVDT 04:43 → CRI 06:24 → ENTRNSPT 07-21 18:12 → EDTRNSPTSTS 07-21 19:05 → EDTRNSPT 07-21 19:05 → 2NA 07-21 19:20 → CMPTRNSPT 07-21 19:26 → 2NA 07-22 06:50
PROVIDERS: Emergency Medicine; Internal Medicine; Student in an Organized Health Care Education/Training Program
PROC: 0BH17EZ Insertion of Endotracheal Airway into Trachea, Via Natural or Artificial Opening (ICD-10-PCS; principal; 2017-07-19)
PROC: 5A1945Z Respiratory Ventilation, 24-96 Consecutive Hours (ICD-10-PCS; principal; 2017-07-19)
DX: A41.9 Sepsis, unspecified organism (principal); J96.22 Acute and chronic respiratory failure with hypercapnia; J96.21 Acute and chronic respiratory failure with hypoxia; R65.21 Severe sepsis with septic shock; G93.41 Metabolic encephalopathy; N17.9 Acute kidney failure, unspecified; R64 Cachexia; I95.9 Hypotension, unspecified; K57.92 Diverticulitis of intestine, part unspecified, without perforation or abscess without bleeding; C78.7 Secondary malignant neoplasm of liver and intrahepatic bile duct; J44.1 Chronic obstructive pulmonary disease with (acute) exacerbation; E87.2 Acidosis; C79.51 Secondary malignant neoplasm of bone; J45.901 Unspecified asthma with (acute) exacerbation; C34.31 Malignant neoplasm of lower lobe, right bronchus or lung; Z68.20 Body mass index [BMI] 20.0-20.9, adult; E87.5 Hyperkalemia; Z51.5 Encounter for palliative care; Z99.81 Dependence on supplemental oxygen; E86.0 Dehydration; I25.9 Chronic ischemic heart disease, unspecified; I48.0 Paroxysmal atrial fibrillation; E78.5 Hyperlipidemia, unspecified; D72.829 Elevated white blood cell count, unspecified; Z79.01 Long term (current) use of anticoagulants; I12.9 Hypertensive chronic kidney disease with stage 1 through stage 4 chronic kidney disease, or unspecified chronic kidney disease; N18.9 Chronic kidney disease, unspecified; R79.1 Abnormal coagulation profile; Z90.5 Acquired absence of kidney; Z79.51 Long term (current) use of inhaled steroids; Z92.21 Personal history of antineoplastic chemotherapy; Z66 Do not resuscitate; F17.200 Nicotine dependence, unspecified, uncomplicated
CPT/HCPCS: 2NAP; CCU; 36415; 71045; 74018; 74176; 80307; 81001; 82436; 87040; 87070; 87071; 87086; 87804; 87804-59; 93005; 93010; 94799; 96374; 96375; 99291; J0610; J0713; J2060; J2920; J3010; J3370; J3490; J7042; J7060; Q2036